=== PATIENT | female | born 1960 | race Caucasian/White ===

== ENCOUNTER 2019-04-22 08:39 | Outpatient (RCR) | payer BC, SELFPAY ==
[2019-04-22 08:51] VITALS: BP_SYST 140
--- NOTE | 2019-04-22 09:54 | PTOPEVAL ---
PHYSICAL THERAPY EVALUATION AND PLAN OF CARE 04-22-2019 Mrs. Sheth has received the PT evaluation today for the diagnosis of lymphedema. The plan of treatment is 2x/week for 5 weeks. Thank you for referring Colleen to [facility]. Please review, sign, date and return this plan of care LURDES. I agree with and certify that the following plan of care is medically necessary. Referring Physician Date Referring Provider: Xin Scott *PT Outpatient Evaluation Start: 04/22/19 08:51 Document 04/22/19 08:51 FAISAL (Rec: 04/22/19 09:54 FAISAL [id number]) Therapy Assessment Status Assessment Status Assessment Status Evaluation Outpatient Past Medical History Neurological History Hx Neurological Disorders No Significant History Cardiovascular History Hx Heart Murmur Yes: tricuspid valve leaks Respiratory History Hx Asthma Yes Hx Other Respiratory Disorders Yes: inactive TB Gastrointestinal History Hx Other Gastrointestinal Disorders Yes: ruiz's esophagus- meds ;constipation Genitourinary History Hx Other Genitourinary Disorders Yes: ureteral stents; deformed kidney Musculoskeletal History Hx Arthritis Yes: pain knees, hips, back, fingers Hx Orthopedic Surgery Yes: L knee arthroscopy,R shoulder manipulation, L shoulder arthroscopy Hx Other Musculoskeletal Disorders Yes: neuropathy in feet, fingers since chemo Hematological History Hx Hematological Disorders No Significant History Endocrine History Hx Endocrine Disorders No Significant History HEENT History Hx HEENT Disorders No Significant History Reproductive History Hx Hysterectomy Yes Other History Hx Other Surgeries Yes: R foot surgery Evaluation Information Problem Diagnosis lymphedema L breast and arm Onset Nov 2018 Subjective Information has continued to have issues Query Text:As Reported By Patient/ since here in November 2018; Family stopped attending in January due to falls, awaiting intermittent compression pump and finding new dr. 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
--- NOTE | 2019-05-21 14:20 | PCPTNOTE ---
PHYSICAL THERAPY DISCHARGE 05-21-2019 Attending Provider: Dr. Xin Scott Patient:Colleen Sheth Date of :1960 Mrs. Sheth has not returned for any further treatments since the PT evaluation on 04/22/2019, therefore she will be discharged from therapy at this time. The goals were not assessed. Thank you for referring Colleen to [facility]. Please review, sign, date and return this discharge summary LURDES. I have been updated about the patient's current status and I agree with discharge from the above service at this time. Referring Physician Date
== END 2019-05-22 14:40 | disposition home or self-care (01) ==
LOC: ANHPT 08:39
DX: I89.0 Lymphedema, not elsewhere classified (principal); C50.912 Malignant neoplasm of unspecified site of left female breast; C77.3 Secondary and unspecified malignant neoplasm of axilla and upper limb lymph nodes
CPT/HCPCS: 97161

== ENCOUNTER 2019-05-05 09:54 | Outpatient (CLI) | payer BC, SELFPAY ==
--- NOTE | 2019-05-05 | ECHO_ITS ---
Patient Info Name: Colleen Sheth Age: 59 years : 1960 Gender: Female Ht: 68 in Wt: 200 lbs BSA: 2.11 m2 HR: 68 bpm BP: 148 / 80 mmHg Heart Rhythm: Sinus Rhythm Technical Quality: Fair Exam Date: 05/05/2019 10:19 AM Exam Location: [facility] Patient Status: Outpatient Admit Date: 05/05/2019 Staff Ordering Physician: Samir Sahu MD Absorber Operator: Alessandra Paula RDCS Attending Provider: Samir Sahu MD Referring Physician: Luis Alberto BENNETT; Exam Type: CA echo doppler color flow Study Info Indications C50.412 - Malignant neoplasm of upper-outer quadrant of left female breast Complete two-dimensional, color flow and Doppler transthoracic echocardiogram is performed. Summary 1. Left ventricular chamber dimension is normal. 2. Left ventricular systolic function is normal, estimated at 60-65%. 3. No significant valvular abnormalities. 4. Compared with September of 2018 there have been no changes. Left Ventricle Left ventricular chamber dimension is normal. Left ventricular systolic function is normal, estimated at 60-65%. The left ventricular diastolic function is grade II diastolic dysfunction. Right Ventricle Right ventricular chamber dimension is normal. Left Atria Left atrial chamber dimension is normal. Right Atria Right atrial chamber dimension is normal. Aortic Valve The aortic valve is trileaflet. Pulmonic Valve The pulmonic valve is normal. Mitral Valve The mitral valve has normal leaflets. Tricuspid Valve The tricuspid valve leaflets are normal. There is mild tricuspid valve regurgitation. Pericardium/Pleural The pericardium appears normal. Aorta The aortic root size at the sinus of Valsalva is normal. Left Ventricular Outflow Tract Name Value Normal LVOT 2D LVOT Diameter 2.0 cm LVOT Doppler LVOT Peak Gradient 5 mmHg LVOT Mean Gradient 3 mmHg LVOT VTI 22 cm LVOT VTI/AV VTI Ratio 0.9 LVOT Stroke Volume 72 ml LVOT CO 4.7 l/min LVOT CI 2.2 l/min/m2 Pulmonic Valve Name Value Normal RVOT Doppler RVOT Peak Gradient 2 mmHg PV Doppler PV Peak Gradient 5 mmHg Mitral Valve Name Value Normal MV Doppler MV Decel [place] 426 cm/s2 MV PHT 58 ms MV Area (PHT)
== END 2019-05-05 09:55 | disposition home or self-care (01) ==
LOC: ANHCARD 09:57
PROVIDERS: Visit Provider Internal Medicine Hematology & Oncology
DX: C50.412 Malignant neoplasm of upper-outer quadrant of left female breast (principal); Z17.0 Estrogen receptor positive status [ER+]; I36.1 Nonrheumatic tricuspid (valve) insufficiency
CPT/HCPCS: 93306

== ENCOUNTER 2020-03-15 13:31 | Outpatient (CLI) | payer BC, SELFPAY ==
--- NOTE | ~2020-03-15 | MM_ITS ---
EXAMINATION: MM diagnostic sukhjinder BI w ruddy HISTORY: Invasive ductal carcinoma of the left breast; status post left partial mastectomy and radiat ion treatment TECHNIQUE: ML, MLO and craniocaudal 3-D tomosynthesis images of both breasts were performed and synth etic 2-D images were generated. CAD analysis was submitted and interpreted. COMPARISON: 09/05/2018bilateral digital mammogram examination BREAST PARENCHYMAL COMPOSITION: The breasts are heterogeneously dense, which may obscure small masses . FINDINGS: The right-sided chemotherapy port is no longer visualized, having been reportedly removed. There is stable increased fibroglandular stromal density, architectural distortion and skin thickenin g, as on 09/05/2018 following reported left partial mastectomy and radiotherapy. No interval suspicious mass or new architectural distortion or retraction of either breast is evident . Occasional benign calcifications. IMPRESSION: 1. Status post left partial mastectomy and radiotherapy; no significant change since 09/05/2018 2. Appropriate follow-up breast imaging as clinically appropriate this patient with history of stage II left breast cancer BI-RADS Category 2: Benign finding(s). Reviewed, dictated and finalized at location A. MACHINE OPERATOR
== END 2020-03-15 13:32 | disposition home or self-care (01) ==
PROVIDERS: Visit Provider Internal Medicine Hematology & Oncology
DX: C50.912 Malignant neoplasm of unspecified site of left female breast (principal)
CPT/HCPCS: 77062; 77066; G0279

== ENCOUNTER 2020-07-29 11:51 | Outpatient (CLI) | payer MEDICARE, BC, SELFPAY ==
--- NOTE | ~2020-07-29 | CT_ITS ---
EXAMINATION: CT brain w con DATE: 07/29/2020 12:31 INDICATION: Memory loss. Dementia. Unsteady gait. TECHNIQUE: Computed tomography (CT) of the head was performed with 100 mL Omnipaque 350 intravenous c ontrast. The mA was adjusted according to patient size. Iterative reconstruction technique was employ ed. The dose-length product was 605.33 mGy-cm. COMPARISON: None FINDINGS: There is no intracranial hemorrhage, acute infarction, or abnormal intracranial mass lesion . The ventricles are normal in size. There is mild mucosal thickening in the ethmoid sinuses. There i s a trace right mastoid effusion. The orbits are normal. IMPRESSION: 1. Normal brain. Reviewed, dictated and finalized at location A. IMPRESSION: 1. Normal brain.
== END 2020-07-29 11:52 | disposition home or self-care (01) ==
PROVIDERS: Visit Provider Internal Medicine Hematology & Oncology
DX: F03.90 Unspecified dementia, unspecified severity, without behavioral disturbance, psychotic disturbance, mood disturbance, and anxiety (principal)
CPT/HCPCS: 36415; 70460; 84443; Q9967

== ENCOUNTER 2021-03-17 11:25 | Outpatient (CLI) | payer MEDICARE, BC, SELFPAY ==
--- NOTE | ~2021-03-17 | MM_ITS ---
EXAMINATION: MM diagnostic sukhjinder BI w ruddy HISTORY: History of left breast cancer and radiation therapy TECHNIQUE: Additional 3-D tomosynthesis images of the breasts were performed and synthetic 2-D images were generated. CAD analysis was submitted and interpreted. COMPARISON: Comparison to multiple prior studies sequentially, with oldest reviewed study dated 04/13. BREAST PARENCHYMAL COMPOSITION: The breasts are heterogenously dense, which may obscure small masses FINDINGS: .There are changes of the left breast consistent with previous lumpectomy and radiation the rapy. No new masses, calcifications or architectural distortion are identified in either breast to marsh ggest malignancy. IMPRESSION: 1. Stable bilateral mammogram without evidence for malignancy. 2. Routine yearly screening mammogram and regular clinical breast examination are recommended. BI-RADS Category 2: Benign finding(s). Reviewed, dictated and finalized at location A. R COATING MACHINE OPERATOR IMPRESSION: 1. Stable bilateral mammogram without evidence for malignancy. 2. Routine yearly screening mammogram and regular clinical breast examination a re recommended. BI-RADS Category 2: Benign finding(s).
== END 2021-03-17 11:26 | disposition home or self-care (01) ==
PROVIDERS: Visit Provider Internal Medicine Hematology & Oncology
DX: C50.412 Malignant neoplasm of upper-outer quadrant of left female breast (principal); Z17.0 Estrogen receptor positive status [ER+]
CPT/HCPCS: 77062; 77066; G0279

== ENCOUNTER 2021-10-13 09:04 | Outpatient (CLI) | payer MEDICARE, BC, SELFPAY ==
--- NOTE | ~2021-10-13 | US_ITS ---
EXAMINATION: US FNA w image guidance DATE: 10/13/2021 11:50 INDICATION: Multinodular goiter TECHNIQUE: [place] ultrasound images were obtained and comparison made to outside institution ultrasound images elizabeth cosby 09/15/2021. A time-out was performed to verify the patient's name, date of , and procedure to be performed. The procedure and its benefits and risks were discussed with the patient. Risks spec ifically discussed included bleeding and infection. The patient understood the risks and agreed to pr oceed. The neck was prepped and draped in the usual sterile manner. 3 mL 1% lidocaine was used for l ocal anesthesia. 6 passes were made with a 25G needle into the lesion. Appropriate needle location was documented with continuous sonographic guidance. A sterile bandage was applied. There were no i mmediate complications. FINDINGS: Telegrapher Agent images identified at the 1 cm wider than tall solid very hypoechoic nodule with internal echoge saroj foci consistent with a TI-RADS 5 nodule meeting criteria for ultrasound-guided biopsy. There is a smaller hypoechoic taller than wide solid nodule at the deep left thyroid measuring 8 mm in maximal diameter, also TI RADS 5 right below size criteria for biopsy at this time but for which annual follo w-up ultrasound would be recommended. Subsequent images demonstrate biopsy needles advanced into the 1.0 cm TI RADS 5 right thyroid nodule. IMPRESSION: 1. Successful ultrasound-guided fine needle aspiration of a 1.0 cm TI RADS 5 right thyroid nodule. 2. 8 mm TI RADS 5 nodule in the inferior left thyroid for which annual ultrasound follow-up would be recommended. Reviewed, dictated and finalized at location A. IMPRESSION: 1. Successful ultrasound-guided fine needle aspiration of a 1.0 cm TI RADS 5 r ight thyroid nodule. 2. 8 mm TI RADS 5 nodule in the inferior left thyroid for which annual ultrasou nd follow-up would be recommended.
== END 2021-10-13 09:05 | disposition home or self-care (01) ==
DX: E04.2 Nontoxic multinodular goiter (principal)
CPT/HCPCS: 10005; 88173; 88305

== ENCOUNTER 2021-10-24 12:28 | Outpatient (CLI) | payer MEDICARE, BC, SELFPAY ==
--- NOTE | ~2021-10-24 | US_ITS ---
EXAMINATION: US venous doppler [facility] DATE: 10/24/2021 14:42 INDICATION: Left lower limb pain. TECHNIQUE: Grayscale ultrasound images without and with compression and Doppler ultrasound images of the bilateral lower extremity veins were obtained. COMPARISON: None. FINDINGS: The visualized portions of right common femoral vein, profunda (deep) femoral vein, femoral vein, pop liteal vein, peroneal veins, posterior tibial veins, and greater saphenous vein outflow are patent. The visualized portions of left common femoral vein, profunda femoral vein, femoral vein, popliteal v ein, peroneal veins, posterior tibial veins, and greater saphenous vein outflow are patent. IMPRESSION: 1. No deep venous thrombosis. Reviewed, dictated and finalized at location A.
== END 2021-10-24 12:29 | disposition home or self-care (01) ==
PROVIDERS: Visit Provider Internal Medicine Cardiovascular Disease
DX: M79.605 Pain in left leg (principal); C50.919 Malignant neoplasm of unspecified site of unspecified female breast
CPT/HCPCS: 93970

== ENCOUNTER 2021-11-10 08:58 | Outpatient (CLI) | payer MEDICARE, BC, SELFPAY ==
--- NOTE | ~2021-11-10 | US_ITS ---
EXAMINATION: US FNA w image guidance DATE: 11/10/2021 10:00 INDICATION: Right thyroid nodule with prior nondiagnostic biopsy. TECHNIQUE: A time-out was performed to verify the patient's name, date of , and procedure to be performed . The procedure and its benefits and risks were discussed with the patient. Risks specifically discus sed included bleeding and infection. The patient understood the risks and agreed to proceed. The neck was prepped and draped in the usual sterile manner. 3 mL 1% lidocaine was used for local anesthesia . 6 passes were made with a 25G needle into the lesion. Appropriate needle location was documented with continuous sonographic guidance. A sterile bandage was applied. There were no immediate compli cations. FINDINGS: Grayscale ultrasound images demonstrate biopsy needles advanced into a nearly anechoic 1.0 x 0.4 x 0. 4 cm likely complex cystic nodule at the inferior right thyroid. There are few internal echogenic foc i, the largest with clearly discernible posterior comet tailing consistent with inspissated colloid a nd suggesting this represents a colloid cyst. No internal vascular flow is identified within the nodu le on color Doppler. IMPRESSION: 1. Successful ultrasound-guided fine needle aspiration of a 1.0 cm right thyroid lesion with imaging findings most consistent with a complex colloid cyst. Reviewed, dictated and finalized at location A. IMPRESSION: 1. Successful ultrasound-guided fine needle aspiration of a 1.0 cm right thyro id lesion with imaging findings most consistent with a complex colloid cyst.
== END 2021-11-10 08:59 | disposition home or self-care (01) ==
DX: E04.2 Nontoxic multinodular goiter (principal)
CPT/HCPCS: 10005; 88173; 88305

== ENCOUNTER 2022-03-20 08:51 | Outpatient (CLI) | payer MEDICARE, BC, SELFPAY ==
--- NOTE | ~2022-03-20 | MM_ITS ---
EXAMINATION: MM screening sukhjinder BI w ruddy HISTORY: Screening mammogram TECHNIQUE: Craniocaudal and mediolateral oblique 3-D tomosynthesis images were obtained and synthetic 2-D images were generated. Bilateral rotated lateral CC views. CAD analysis was submitted and interp reted. COMPARISON: 03/17/2021 bilateral diagnostic mammogram 03/15/2020 bilateral diagnostic mammogram 09/05/2018 right screening and left diagnostic mammogram BREAST PARENCHYMAL COMPOSITION: The breasts are heterogeneously dense, which may obscure small masses . FINDINGS: Right breast: There is no evidence of suspicious mass, calcification, or architectural dist ortion to suggest malignancy in the right breast. Occasional benign calcifications. There has been no suspicious interval change. Left breast: There is stable asymmetric increased density, architectural distortion and skin thickeni ng; history of partial mastectomy and radiotherapy. There is significant new or developing density or new architectural distortion or retraction is noted . Occasional benign calcifications. IMPRESSION: 1. Status post left partial mastectomy and radiotherapy for left breast cancer No mammographic eviden ce of new or recurrent malignancy. 2. Recommend routine screening mammography in one year. BI-RADS Category 2: Benign finding(s). Reviewed, dictated and finalized at location A. NE COWLING INSTALLER IMPRESSION: 1. Status post left partial mastectomy and radiotherapy for left breast cancer No mammographic evidence of new or recurrent malignancy. 2. Recommend routine screening mammography in one year. BI-RADS Category 2: Benign finding(s).
== END 2022-03-20 08:52 | disposition home or self-care (01) ==
LOC: ANHIMG 08:52
PROVIDERS: Visit Provider Internal Medicine Hematology & Oncology
DX: Z12.31 Encounter for screening mammogram for malignant neoplasm of breast (principal)
CPT/HCPCS: 77063; 77067

== ENCOUNTER 2023-03-23 11:43 | Outpatient (CLI) | payer MEDICARE, BC, SELFPAY ==
--- NOTE | ~2023-03-23 | MM_ITS ---
EXAMINATION: MM screening sukhjinder BI w ruddy HISTORY: Screening mammogram, history of left breast cancer TECHNIQUE: Craniocaudal and mediolateral oblique 3-D tomosynthesis images were obtained and synthetic 2-D images were generated. CAD analysis was submitted and interpreted. COMPARISON: 03/20/2022, 03/17/2021, 03/15/2020, 09/05/2018 BREAST PARENCHYMAL COMPOSITION: The breasts are heterogeneously dense, which may obscure small masses . FINDINGS: There are stable lumpectomy changes of the left breast. No suspicious mass, calcification, or architectural distortion are identified in either breast to suggest malignancy. There has been no suspicious interval change. IMPRESSION: 1. No mammographic evidence of malignancy. 2. Recommend routine screening mammography in one year. BI-RADS Category 2: Benign finding(s). Reviewed, dictated and finalized at location A. ET OPERATOR
== END 2023-03-23 11:44 | disposition home or self-care (01) ==
LOC: CHSIMG 11:48
PROVIDERS: Visit Provider Internal Medicine Hematology & Oncology
DX: Z12.31 Encounter for screening mammogram for malignant neoplasm of breast (principal)
CPT/HCPCS: 77063; 77067

== ENCOUNTER 2023-05-21 10:22 | Outpatient (CLI) | payer MEDICARE, BC, SELFPAY ==
--- NOTE | ~2023-05-21 | MR_ITS ---
EXAMINATION: MR shoulder LT wo con DATE: 05/21/2023 10:59 INDICATION: Acute pain of left shoulder. TECHNIQUE: Magnetic resonance imaging (MRI) of the left shoulder was performed without intravenous co ntrast. Sequences included axial PD-weighted FS FSE, coronal oblique PD-weighted FS FSE and T2-weight ed FS FSE, and sagittal oblique T2-weighted FS FSE and T1-weighted FSE. COMPARISON: None. FINDINGS: Coracoacromial arch: The acromion undersurface is flat in morphology (type I). There is severe acromioclavicular joint ost eoarthritis including inferiorly directed osteophytes. There is mild subacromial/subdeltoid bursitis. Rotator cuff: There is a bursal-sided, partial-thickness tear of the junction of supraspinatus and infraspinatus te ndons measuring 3 mm anterior to posterior by 6 mm proximal to distal by 40% tendon thickness. Teres minor tendon is normal. There is mild subscapularis tendinopathy. The rotator cuff muscle bellies are normal. There is edema-like marrow signal intensity in greater tuberosity, consistent with stress re action. Biceps tendon and glenoid labrum: Biceps tendon is in bicipital groove. Intra-articular biceps tendon is normal. The glenoid labrum is normal. Fluid: There is no glenohumeral joint effusion. Bones/cartilage: Glenoid cartilage is normal. Humeral head cartilage is normal. IMPRESSION: 1. Bursal-sided, partial-thickness tear of the junction of supraspinatus and infraspinatus tendons. 2. Severe acromioclavicular joint osteoarthritis. 3. Mild subacromial/subdeltoid bursitis. Reviewed, dictated and finalized at location E. IMPRESSION: 1. Bursal-sided, partial-thickness tear of the junction of supraspinatus and in fraspinatus tendons. 2. Severe acromioclavicular joint osteoarthritis. 3. Mild subacromial/subdeltoid bursitis.
== END 2023-05-21 10:23 ==
PROVIDERS: Visit Provider Registered Nurse
DX: M19.012 Primary osteoarthritis, left shoulder (principal); M75.52 Bursitis of left shoulder
CPT/HCPCS: 73221

== ENCOUNTER 2023-05-21 11:25 | Outpatient (CLI) | payer MEDICARE, BC, SELFPAY ==
[2023-05-21 11:51] LABS: Basophils Absolute Auto 0.1 K/mm3 (0.0-0.1); Basophils Percent Auto 1.2 % (0.2-1.2); Eosinophils Absolute Auto 0.3 K/mm3 (0-0.3); Eosinophils Percent Auto 4.6 % (0-4.4); Hematocrit 38.1 % (37.0-47.0); Hemoglobin 12.6 g/dL (12.0-15.0); Immature Granulocyte Absolute 0.01 K/mm3 (0.00-0.031); Immature Granulocyte Percent A 0.2 % (0-0.5); Lymphocytes Absolute Auto 1.59 K/mm3 (0.9-3.2); Lymphocytes Percent Auto 28.1 % (18.3-44.2); Mean Corpuscular HGB Conc 33.1 g/dl (32-36); Mean Corpuscular Hemoglobin 32.3 pg (26-34); Mean Corpuscular Volume 97.7 fl (80-100); Mean Platelet Volume 9.5 fl (7.4-10.4); Monocytes Absolute Auto 0.4 K/mm3 (0.1-0.6); Monocytes Percent Auto 6.5 % (2.6-8.5); Neutrophils Absolute Auto 3.4 K/mm3 (1.3-6.7); Neutrophils Percent Auto 59.4 % (45.5-73.1); Platelet Count Result 287 k/mm3 (150-375); Red Cell Distribution Width 13.2 % (11.5-14.5); White Blood Count 5.7 K/mm3 (4.5-10.0)
[2023-05-21 19:32] LABS: Alanine Aminotransferase 23 U/L (6-35); Albumin Level 4.4 g/dL (3.5-5.1); Alkaline Phosphatase 86 U/L (38-126); Anion Gap 5 mmol/L (8-16); Aspartate Amino Transferase 25 U/L (14-36); Bilirubin,Total 0.5 mg/dL (0.2-1.3); Blood Urea Nitrogen 16 mg/dL (7-17); Calcium 9.7 mg/dL (8.4-10.2); Carbon Dioxide 28 mmol/L (22-30); Chloride 104 mmol/L (98-107); Estimated Glomerular Filt Rate 50; Glucose 119 mg/dL (65-110); Potassium 4.2 mmol/L (3.4-5.0); Sodium 137 mmol/L (137-145)
[2023-05-26 10:10] LABS: CA 15-3 21 U/mL (<32)
== END 2023-05-21 11:26 | disposition home or self-care (01) ==
PROVIDERS: Visit Provider Internal Medicine Hematology & Oncology
DX: C50.912 Malignant neoplasm of unspecified site of left female breast (principal)
CPT/HCPCS: 36415; 80053; 85025; 86300

== ENCOUNTER 2023-11-23 14:18 | Outpatient (CLI) | payer MEDICARE, BC, SELFPAY ==
[2023-11-23 15:03] LABS: Basophils Absolute Auto 0.1 K/mm3 (0.0-0.1); Basophils Percent Auto 0.9 % (0.2-1.2); Eosinophils Absolute Auto 0.1 K/mm3 (0-0.3); Eosinophils Percent Auto 1.9 % (0-4.4); Hematocrit 36.7 % (37.0-47.0); Hemoglobin 12.6 g/dL (12.0-15.0); Immature Granulocyte Absolute 0.01 K/mm3 (0.00-0.031); Immature Granulocyte Percent A 0.2 % (0-0.5); Lymphocytes Absolute Auto 1.34 K/mm3 (0.9-3.2); Lymphocytes Percent Auto 23.7 % (18.3-44.2); Mean Corpuscular HGB Conc 34.3 g/dl (32-36); Mean Corpuscular Hemoglobin 33.2 pg (26-34); Mean Corpuscular Volume 96.8 fl (80-100); Mean Platelet Volume 10.1 fl (7.4-10.4); Monocytes Absolute Auto 0.4 K/mm3 (0.1-0.6); Monocytes Percent Auto 7.8 % (2.6-8.5); Neutrophils Absolute Auto 3.7 K/mm3 (1.3-6.7); Neutrophils Percent Auto 65.5 % (45.5-73.1); Platelet Count Result 282 k/mm3 (150-375); Red Blood Count 3.79 M/mm3 (4.2-5.4); Red Cell Distribution Width 12.9 % (11.5-14.5); White Blood Count 5.7 K/mm3 (4.5-10.0)
[2023-11-23 15:25] LABS: Alanine Aminotransferase 15 U/L (6-35); Albumin Level 4.4 g/dL (3.5-5.1); Alkaline Phosphatase 70 U/L (38-126); Anion Gap 10 mmol/L (4-12); Aspartate Amino Transferase 23 U/L (14-36); Bilirubin,Total 0.4 mg/dL (0.2-1.3); Blood Urea Nitrogen 15 mg/dL (7-17); Calcium 9.1 mg/dL (8.4-10.2); Carbon Dioxide 26 mmol/L (22-30); Chloride 105 mmol/L (98-107); Estimated Glomerular Filt Rate 46; Glucose 99 mg/dL (65-110); Potassium 3.6 mmol/L (3.4-5.0); Sodium 141 mmol/L (137-145)
[2023-11-28 07:48] LABS: CA 15-3 19 U/mL (<32)
== END 2023-11-23 14:19 | disposition home or self-care (01) ==
LOC: ANHLAB 14:26
PROVIDERS: Visit Provider Internal Medicine Hematology & Oncology
DX: C50.912 Malignant neoplasm of unspecified site of left female breast (principal)
CPT/HCPCS: 36415; 80053; 85025; 86300

== ENCOUNTER 2024-04-18 09:48 | Outpatient (CLI) | payer MEDICARE, BC, SELFPAY ==
--- NOTE | ~2024-04-18 | MM_ITS ---
EXAMINATION: MM screening sukhjinder BI w ruddy HISTORY: Screening TECHNIQUE: Craniocaudal and mediolateral oblique 3-D tomosynthesis images were obtained and synthetic 2-D images were generated. CAD analysis was submitted and interpreted. COMPARISON: Comparison to multiple prior studies sequentially, with oldest reviewed study dated 08/2017. BREAST PARENCHYMAL COMPOSITION: Dense: The breasts are heterogeneously dense, which may obscure small masses FINDINGS: There is a developing asymmetry in the upper outer quadrant of the right breast. There is a developing asymmetry in the lower inner quadrant of the left breast. There are no suspicious calcifi cations. IMPRESSION: 1. Developing bilateral breast asymmetries. 2. Additional mammographic views and possible breast ultrasound are recommended. BI-RADS Category 0: Incomplete: Needs additional imaging evaluation. Reviewed, dictated and finalized at location L. ITAL CLERK IMPRESSION: 1. Developing bilateral breast asymmetries. 2. Additional mammographic views and possible breast ultrasound are recommended . BI-RADS Category 0: Incomplete: Needs additional imaging evaluation.
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
--- OUTSIDE RECORDS SUMMARY | 2024-04-18 10:25 | XMS_ITS ---
Author Organization [facility] [place] Address [address] [place] [address] Phone Care Team Providers Care Rides Attendant Name Role Phone Unavailable Primary Care Provider Unavailabl e Active Problems Patient Care Coordination No te Formatting of this note migh t be different from the original. Primary Care: Sanford Jorge MD Referring Provider: Sanford Jorge MD [address] [place] [phone] Other: Dr. Xin Scott MD Problem Noted Date Diagnosed Date Lymphedema of breast 12/04/2018 Malignant neoplasm of upper- outer quadrant of left breast in female, estrogen receptor positive 12/04/2018 History of external beam radiation therapy 12/04 Posttraumatic hematoma of left breast 12/04/2018 Family history of uterine cancer 05/02/2018 Family history of malignant neoplasm of colon in relative diagnosed when younger than 50 years of age 0305/02/2018 Family history of chronic lymphoid leukemia 08/2018 Family history of kidney cancer 05/02/2018 Genetic testing 05/02/2018 Overview (06/11/2018): NEGATIVE genetic testing. The patient underwent the myriad my risk genetic testing for hereditary cancer syndromes [...] common hereditary cancer syndromes. Metastatic cancer to axillary lymph nodes 2018 Invasive ductal carcinoma of breast, stage 2, le ft 02/15/2018 Inactive TB Current Treatment and Therapy Plans No current plan information found. Past Treatment and Therapy Plans ONCOLOGY THERAPY PLAN Plan Name Start Date Discontinue Date Treatment Medications Discontinue Reason Plan Provider BLANK SUPPORTIVE CARE THERAPY PLAN 04/05/2018 01/12/2020 No medications scheduled. Therapy Complete Yesy Linda NP ONCOLOGY TREATMENT Plan Name Start Date Discontinue Date Treatment Medications Discontinue Reason Plan Provider Cycles OP ONC BREAST_TCH + PERTUZUMAB_ EVERY 21 DAYS X 6 FOLLOWED BY TRASTUZUMAB _EVERY 21 DAYS TO COMPLETE 1 YEAR 03/29/2018 01/13/2020 CARBOplatin (PARAPLATIN) IVPBDOCEtaxel (TAXOTERE) IVPBpertuzumab (PERJETA) IVPBtrastuzumab (HERCEPTIN) IVPB Therapy Complete Samir Darby MD 3 of 19 cycles started Lifetime Dose Tracking * Chemical Lifetime Dose Automatic Entry Manual Entr y trastuzumab 13.792 mg/kg (1,182 mg) 13.792 mg/kg (1,1 82 mg) 0 mg/kg (0 mg) Effective Dose 25.4 mSv 25.4 mSv 0 mSv Total DLP 1,878 DLP 1,878 DLP 0 DLP CTDIvol Max 30.1 mGy 30.1 mGy 0 mGy CTDIvol Min 29.1 mGy 29.1 mGy 0 mGy Treatment Summaries Invasive ductal carcinoma of breast, stage 2, left (CMS/HCC)* Breast Cancer Survivorship Care Plan Provided by [facility] on 01/21/19 General Information Patient Name: Colleen Sheth Patient : 1960 Care Team Medical Oncologist: Samir Darby Syed M, MD Surgeon: Xin Scott [phone] Primary Care Physician: Dr. Sanford Jorge Nurse Navigator: Sydney Harmon RN Advanced Practitioner: ROSSY Webber NP Diagnosis/Work up On 01/02/2018 a diagnostic mammogram was performed and showed a new area of asymmetry in the left breast. Ultrasound showed a 10 mm mass that was worrisome for cancer On 01/11/2018 an ultrasound-guided core biopsy was performed of the new left breast mass and pathology showed invasive ductal carcinoma with the following features- intermediate grade, estrogen positive, progesterone positive, and HER 2 positive On a left lumpectomy that showed an intermediate grade invasive ductal carcinoma that measured 2.8 x 2.0 x 1.8 cm, high grade ductal carcinoma in situ noted, margins were positive, left sentinel lymph node biopsy showed cancer in 1 of 2 lymph nodes. On 02/25/2018 a left re-excision was performed and showed no evidence of residual in situ or invasive carcinoma On 03/25/[address] scan did not show any evidence of metastatic cancer Staging information Cancer type/location/histology subtype: Invasive ductal carcinoma of the left breast TNM: T2 N1 M0 Stage: [] I [x] II [] III [] IV Estrogen Receptor: Positive Progesterone Receptor: Positive [id number]: Positive Treatment Summary Surgery Left lumpectomy and sentinel lymph node biopsy Left re-excision Date: 02/08/2018 Date: 02/25/2018 Chemotherapy Taxotere + Carboplatin + Herceptin + Perjeta every 3 weeks X 3 cycles Maintenance Herceptin for total of 12 months Dates: 03/29/18- 05-22-18 Dates: June 2018- March 2019 Radiation Type: External Beam Site: Left breast Start Date: July 01, 2018 Endocrine Arimidex Date: July 2018 Familial Cancer Risk Assessment Genetic Counseling yes Dates: 05-02-18 Genetic Testing Results: Negative Date: 06-11-18 Persistent symptoms or side effects at completion of treatment: no Types: Potential late effects of treatment(s): Surgical Treatment: These are some side effects that may be a result of your breast surgery. You may have one or more of these problems or you may not experience any of these problems. Please contact your doctor if you have: Seroma- A collection of fluid in the area of surgery that does not go away. Pain in the area of surgery that does not go away after the site is healed. This may last for a long period of time. Difficulty in moving your shoulder and/or arm on the side of your surgery. Radiation Treatment: Late side effects generally occur 6 or more months after the completion of radiation therapy. The extent and severity of these side effects vary depending on patient factors and radiation treatment design. The majority of radiation side effects occur within the radiation treatment field. Skin changes Risk of lymphedema Risk of lung tissue changes Chemotherapy Treatment: Taxotere + Carboplatin + Perjeta + Herceptin Fatigue Memory/Concentration issues Peripheral neuropathy Cardiomyopathy (Herceptin)- baseline echo done on 03/25/18 showed normal ejection fraction of 60-65%and most recent echo done on 10/22/18 showed stable ejection fraction of 55-60% Endocrine Therapy: The effects are going to depend on the drug received: Anastrazole (Arimidex) Osteoporosis Joint pain/stiffness Hot flashes Vaginal dryness, lack of libido Cancer Survivors may experience issues with the area listed below. If you have any concerns in these or other areas, please speak with your doctors or nurses to find out how you can get help with them. Potential Areas of Concern Potential Areas of Concern Emotional and Mental Health Physical Functioning Memory or Concentration Loss Fatigue Spiritual Issues Weight Changes School/Work Financial Advice or Assistance Sexual Functioning Resources Provided to Patient [facility]errals Provided: [facility] Follow-up and Survivorship Care Follow Up Care Recommendation Coordinating Provider Ongoing Therapy Therapy: Aromatase Inhibitors (Anastrozole, Letrozole, Exemestane). Possible Side Effects: Hot Flashes, Joint/Muscle Aches, Vaginal Dryness, Bone Loss, and Hair Thinning Planned Duration: 5-10 years Medical Oncologist Medical Oncology history and physical (H&P) examination Visit your doctor every 3 to 4 months for the first 3 years after the first treatment, every 6 months for years 4 and 5, and every year thereafter. Medical Oncologist Surgeon 1-2 times per year as clinically indicated for 5 years; every year thereafter. Surgeon Radiation Oncology 4-6 weeks after treatment, then every 3-6 months for the first 3 years and then every 6-12 months for year 4 and 5. Radiation Oncologist Post-treatment mammography Schedule a mammogram 1 year after your first mammogram that led to diagnosis. Done on 09/05/2018. Obtain a mammogram every 12 months thereafter Medical Oncologist, PCP, and Surgeon Breast self-examination Perform a breast self-examination every month. This procedure is not a substitute for a mammogram. Medical Oncologist, Surgeon, and OB/Ultrasound Tech Pelvic examination Continue to visit a wheel fitter regularly OB/Ultrasound Tech Bone Density Baseline prior to Anastrozole, Letrozole, and Exemestane on all postmenopausal women and repeated every 1 to 2 years as directed by physician. Medical Oncologist/Primary Care Provider Non cancer related preventive care Continue your routine visits to your primary care physician for preventative care. Bone health DEXA every 2 years Calcium with vitamin D 1000 units daily Weight bearing exercise Colon Cancer Screening Screening colonoscopy starting at age 45 or as discussed with PCP Stool guaiac tests Eat fruits and vegetables Heart Health Weight management Cholesterol management Blood sugar control Blood pressure control Cervical Cancer Screening Pap test as discussed with PCP Call your doctor if you have any of these signs and symptoms: abdominal bloating, appetite changes,bone pain, dehydration, diarrhea, dizziness, fatigue, shortness of breath, vaginal bleeding, weightgain, and weight loss *Any new, unusual and/or persistent symptoms should be brought to the attention of your provider. PLAN 1- Continue maintenance Herceptin 2- Baseline bone density 3- due for repeat echocardiogram in February 2019 RESOURCES [facility] organizations Cancer Support Community of [facility] cancer community office which include support groups (including a survivorship group), mentoring, exercise and yoga classes among other ways to get involved and connect with fellow survivors as well as resources for families and caregivers. Website: http://www.cancersupportstl.org/ [facility] at the [facility] A physical activity and wellness program designed for cancer survivors to help achieve well-being. Contact your local [facility] to get started. The program is free to join and lasts for 12 weeks. Visit the website to see a list of participating locations. Website: https://www.[facility].org/program/livestrong Cancer Information Center at [facility]???s Omer Rehman [facility] Call or drop by to speak with a social insurance analyst or nurse navigator for questions about financial/food/housing assistance, counseling services, resources for wigs, checkman referral and general questions about diagnosis, treatment and survivorship. There is also a survivorship monthly support group that meets at [place]. Call for more information. Website for special events/classes: https://www.[facility]/practice/reva-cancer-center/cance u-nxrtbrwa-vis-special-events/ National nonprofit organizations [employer]/National Cancer Information Center [facility] provides cancer information and support to patients, families, and caregivers. It also supportsresearch, community, education, and advocacy and public policy issues Phone: 0-376-CVR-0114 ( ) Website: www.cancer.org CancerCare Provides free, professional support services to anyone affected by cancer. CancerCare programs include counseling, education, financial assistance and practical help by trained oncology social workers and are free of charge. Phone: 9-740-848-HOPE ( ) Website: www.cancercare.org Cancer Hope Network Cancer Hope Network matches patients and families with trained volunteers who have recovered from asimilar cancer experience. Phone: 0-633-SIKWLSO ( ) Website: www.cancerhopenetwork.org Cancer Support Community Cancer support community is a national organization that provides support groups, stress reduction and cancer education workshops, nutrition guidance, exercise sessions and social events. Phone: 8-516-473-[facility] ( ) Website: www.cancersupportcommunity.org National Coalition for Cancer Survivorship NCCS provides information and resources on cancer support, advocacy, and tmndrio-be-nwrq issues to cancer survivors and loved ones. Phone: 8-501-BJNR-YES ( ) Website: www.canceradvocacy.org Patient Advocate Foundation [facility] provides education, legal counseling, and referrals to cancer patients and survivors. It specializes in matters related to managed care, insurance, financial issues, job discrimination and debt crisis. Phone: Website: www.patientadvocate.org Important caution: this is a summary document whose purpose is to review the highlights of the cancer treatment for this patient. This does not replace information available in the medical record, a complete medical history provided by the patient, examination and diagnostic information, or educational materials that describe strategies for coping with cancer and cancer therapies in detail. Both medical science and an individual???s health care needs change, and therefore this document is current only as of the date of preparation. This summary document does not prescribe or recommend any particular medical treatment or care for cancer or any other disease and does not substitute for the independent medical judgment of the treating professional. Resolved Problems Problem Noted Date Diagnosed Date Resolved Date Invasive ductal carcinoma of left breast, stage 1 01/16/2018 02/15/2018 Breast pain, left 01/16/2018 03/08/2018 Abnormal mammogram of left breast 01/03/2018 03/08/2018
--- OUTSIDE RECORDS SUMMARY | 2024-04-18 10:25 | XMS_ITS | Clinical Summary ---
Author Organization [facility] [place] Address [address] [place] [address] Phone Care Team Providers Care Wood Calker Name Role Phone Unavailable Primary Care Provider Unavailabl e Allergies Active Allergy Reactions Criticality Noted Date Comments Amoxicillin Rash Low 04/12/2011 Yeast infection specifically Iodine Shortness of Breath/Wheezing,Nausea and Vomiting High 08/06/2015 Lisinopril Cough Medium 05/18/2011 Medications naproxen sodium (ALEVE) 220 mg Capsule Take 220 mg by mouth every 12 hours as needed for Pain, Moderate. Active lansoprazole (PREVACID) 30 mg Capsule, Delayed Release(E.C.) Take 30 mg by mouth daily . 8 Active hydroCHLOROthiaz khushbu 25 mg tabletIndication s:ON HOLD Take 25 mg by mouth daily . 8 Active valACYclovir (VALTREX) 500 mg tablet TAKE 1 TABLET (500 MG) BY ORAL ROUTE 2 TIMES PER DAY FOR 3 DAYS as needed 4 8 Active fluticasone (FLONASE) 50 mcg/spray Ada, Suspension by See Admin Instructions route 1 time daily as needed . 8 Active ergocalciferol, vitamin D2, (VITAMIN D ORAL) Take 5,000 mg by mouth daily . Active ipratropium-albu terol (DUONEB) 0.5 mg-3 mg(2.5 mg base)/3 mL Solution for Nebulization Take 3 mL by inhalation every 4 hours as needed for Shortness of Breath. Active albuterol HFA 90 mcg inhaler Take 2 Puffs by inhalation every 6 hours as needed for Shortness of Breath. Active Chlorpheniramine -Codeine (Z-Tuss AC) 2-9 mg/5 mL Liquid Active HYDROcodone-acet aminophen (NORCO) 5-325 mg tablet Active multivitamin (DAILY-KEN) tablet Active promethazine (PHENERGAN) 25 mg tablet Active fluticasone furoate (Arnuity Ellipta) 50 mcg/actuation Disk with Device Act paola budesonide (UCERIS) 9 mg Extended Release 24 hour tablet Activ e ergocalciferol, vitamin D2, 2,500 unit Capsule Active naloxone (NARCAN) 4 mg/spray Ada, Non-Aerosol Administer 1 spray (4 mg) in one nostril one time. May repeat in alternating nostrils every 2-3 min until responsive or EMS arrives. 2 Each 3 0 Active cyanocobalamin, vitamin B-12, 2,000 mcg Tablet Take by mouth. Active Docusate Sodium 100 mg Tablet Take 1 Tablet by mouth 1 time daily as needed. 7 Active zinc oxide (DESITIN 13%) 13 % cream Apply to affected area 1 time daily as needed. 0 Active gabapentin (NEURONTIN) 400 mg capsuleIndicatio ns:Malignant neoplasm of upper-outer quadrant of left breast in female, estrogen receptor positive (CMS/HCC),Neurop athy,Metastatic cancer to axillary lymph nodes (CMS/HCC) Take 1 Capsule (400 mg) by mouth 3 times daily. 270 Capsule 3 0 Active magnesium oxide 500 mg Capsule Take by mouth 1 time daily as needed. Active ondansetron (Zofran ODT) 4 mg Tablet, Rapid Dissolve Place 1 Tablet (4 mg) under tongue every 8 hours as needed for Nausea/Emesis. Dissolve tablet on top of tongue, then swallow with saliva. 30 Tablet 3 1 Active cyclobenzaprine (FLEXERIL) 5 mg Tablet Take 5 mg by mouth. 1 Active rosuvastatin (CRESTOR) 10 mg tablet Take 10 mg by mouth. 1 Active hydrocortisone (HYTONE) 2.5 % Ointment Apply to affected area 2 times daily. 20 Gram 1 1 Active fluticasone propion-salmeter oL (Advair Diskus) 250-50 mcg/dose disk inhaler INHALE 1 PUFF INTO THE LUNGS TWICE A DAY 2 Active VITAMIN E ORAL Take by mouth. Active VIT B COMP NO.1-GYUHN-O-BIO TIN ORAL Take by mouth. Activ e potassium chloride (KLOR-CON) 10 mEq Extended Release tabletIndication s:Malignant neoplasm of upper-outer quadrant of left breast in female, estrogen receptor positive (CMS/HCC) TAKE 2 TABLETS DAILY WITH BREAKFAST 180 Tablet 3 2 Active zolpidem (Ambien) 10 mg tabletIndication s:Insomnia, unspecified type Take 1 Tablet (10 mg) by mouth nightly as needed for Insomnia. 30 Tablet 1 3 Active anastrozole (ARIMIDEX) 1 mg tabletIndication s:Malignant neoplasm of upper-outer quadrant of left breast in female, estrogen receptor positive (CMS/HCC) Take 1 Tablet (1 mg) by mouth daily. 90 Tablet 3 3 Active venlafaxine (EFFEXOR XR) 37.5 mg Extended Release 24 hour capsuleIndicatio ns:Malignant neoplasm of upper-outer quadrant of left breast in female, estrogen receptor positive (CMS/HCC) TAKE 2 CAPSULES IN THE MORNING AND 1 IN THE EVENING 270 Capsule 4 4 Active losartan (COZAAR) 25 mg tablet Take 25 mg by mouth daily. 4 Active meloxicam (MOBIC) 7.5 mg tablet Take 7.5 mg by mouth daily. 4 Active Phentermine 8 mg Tablet Take 8 mg by mouth daily. 4 Active topiramate (TOPAMAX) 25 mg tablet Take 25 mg by mouth 2 times daily. 4 Active LORazepam (ATIVAN) 1 mg tabletIndication s:Invasive ductal carcinoma of left breast, stage 2 (CMS/HCC),Malign ant neoplasm of upper-outer quadrant of left breast in female, estrogen receptor positive (CMS/HCC) TAKE 1 TABLET BY MOUTH EVERY 8 HOURS NEEDED FOR ANXIETY/NAUSEA/V OMITING 90 Tablet 4 Active Active Problems Patient Care Coordination No te Formatting of this note migh t be different from the original. Primary Care: Sanford Jorge MD Referring Provider: Sanford Jorge MD [address] [place] [address] [place] [address] Other: Dr. Xin Scott MD Problem Noted [...] NEGATIVE genetic testing. The patient underwent the [employer] my risk genetic testing for hereditary cancer [...] stage 2, le ft 02/15/2018 Inactive TB Resolved Problems Problem Noted Date Diagnosed Date Resolved Date Invasive ductal carcinoma of left breast, stage 1 01/16/2018 02/15/2018 Breast pain, left 01/16/2018 03/08/2018 Abnormal mammogram of left breast 01/03/2018 03/08/2018 Encounters Date Type Department Care Team Description 04/15/2024 External Device Data [facility] ABSTRACTION Provider, Abstract 03/20/2024 External Device Data [facility] ABSTRACTION Provider, Abstract 03/18/2024 External Device Data [facility] ABSTRACTION Provider, Abstract 03/11/2024 External Device Data [facility] ABSTRACTION Provider, Abstract 01/29/2024 External Device Data [facility] ABSTRACTION Provider, Abstract from Last 3 Months Immunizations Immunization Administration Dates Next Due Influenza Seasonal Unspecified Formulation IM Family History Medical History Relation Name Comments Healthy Brother 1 Healthy Brother 2 Healthy Daughter 1 Healthy Daughter 2 Healthy Daughter 3 Cancer Father Kidney Kidney Cancer Father Cancer Maternal Aunt 1 Uterine canc er Heart Disease Maternal Aunt 1 Diabetes Maternal Aunt 2 Heart Disease Maternal Aunt 2 Healthy Maternal Aunt 3 Cancer Maternal Cousin Uterine canc er Cancer Maternal Grandmother CLL in her 50s Colon Cancer Maternal Uncle 1 Heart Disease Maternal Uncle 2 Heart Disease Maternal Uncle 3 Heart Disease Maternal Uncle 4 Cancer Mother Uterine Diabetes Mother Heart Disease Paternal Grandfather Heart Disease Paternal Grandmother Diabetes Paternal Uncle 1 Diabetes Paternal Uncle 2 Healthy Sister Breast Cancer Neg Hx Ovarian Cancer Neg Hx Relation Name Status Comments Brother 1 Alive Brother 2 Alive Daughter 1 Alive Daughter 2 Alive Daughter 3 Alive Father Alive Maternal Aunt 1 Maternal Aunt 2 Maternal Aunt 3 Alive Maternal Aunt 4 Maternal Cousin Maternal Grandfather Maternal Grandmother Maternal Uncle 1 Maternal Uncle 2 Maternal Uncle 3 Maternal Uncle 4 Mother Paternal Grandfather Paternal Grandmother Paternal Uncle 1 Paternal Uncle 2 Sister Alive Social History Tobacco Use Types Packs/Day Years Used Date Smoking Tobacco: Never Smokeless Tobacco: Never Tobacco Cessation:Counseling Given: Not Answered Alcohol Use Standard Drinks/Week Comments No 0 (1 standard drink = 0.6 oz pur e alcohol) Comments No Sex and Gender Information Value Date Recorded Sex Assigned at Not on file Legal Sex 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 Gender Identity Not on file Sexual Orientation Not on file Last Filed Vital Signs Vital Sign Reading Time Taken Comments Blood Pressure 148/85 11/30/2023 9:35 AM CDT Pulse 75 11/30/2023 9:35 AM CDT Temperature 36.6 C (97.8 F) 11/30/2023 9:35 AM CDT Respiratory Rate 16 11/30/2023 9:35 AM CDT Oxygen Saturation 98% 11/30/2023 9:35 AM CDT Inhaled Oxygen Concentration - - Weight 84.4 kg (186 lb) 11/30/2023 9:35 AM CDT Height 172.7 cm (5' 8 ) 06/09/2021 1:18 PM CDT Body Mass Index 28.28 06/09/2021 1:18 PM CDT Plan of Treatment Upcoming Encounters Date Type Department Care Team (Late st Contact Info) Description 06/02/2024 10:00 AM CDT Office Visit [facility] [address] [place] [phone] Samir Sahu MD [address] [facility] [address] [place] [phone] Health Maintenance Due Date Last Done Comments Pre-Diabetes and Diabetes Screening 1960 ZOSTER VACCINE (1 of 2) 1980 CERVICAL CANCER SCREENING 1991 FIT-DNA Q 3 years 2006 Flex Sig/CT Colonography Q 5 years 2006 FIT/FOBT Q 1 year 04/02/2019 04/02/2018 INFLUENZA VACCINE (#1) 2023 12/16/2020, 2017 Preventative Visit- Commercial 02/27/2024 BREAST CANCER SCREENING 03/23/2024 03/23/19 24, 03/15/2020, 09/25/2019, Additional history exists COLORECTAL SCREENING 06/29/2031 06/28/2021, 07/27/19 12 Colorectal Cancer Screening 06/29/2031 DTAP/TDAP/TD VACCINES (4 - T d or Tdap) 05/03/2033 05/04/2023, 09/21/2014, 08/24/2006, Additional history exists RSV VACCINE (60+ or ) (1 - 1-dose 75+ series) 2036 Medical Devices Implanted Type Area Teller Head Device Identifier Shelf Expiration Date Model / Serial / Lot Hemostatic Surgicel 2x14in 1950 - [id number] Implanted:Qty : 1 on 02/08/2018 by Xin Scott MD at [facility] Hemostatic Left: Axilla [employer] [id number] 10/26/20211950 / / [id number] Hemostatic Surgicel 2x14in 1949 - [id number] Implanted:Qty : 1 on 02/25/2018 by Xin Scott MD at [facility] Hemostatic Left: Breast [employer] 06/25/20221950 / / [id number] Explanted Type Area Teller Head Device Identifier Shelf Expiration Date Model / Serial / Lot Port Pwrprt Clr Du 8fr Mri [id number] - [id number] Implanted:Qty : 1 on 03/27/2018 by Xin Scott MD at [facility] Explanted:Qty : 1 on 02/09/2020 by Xin Scott MD at [facility] Port Right: Chest CR [employer] [id number] 05/27/2019 [id number] / / [id number] Procedures Procedure Name Priority Date/Time Associated Diagnosis Comments MAMMO SCREENING BILAT Routine 03/23/2023 10:32 AM TECHNICAL PHOTOGRAPHER OCCULT BLOOD IMMUNOASSAY, COLORECTAL SCREEN Routine 04/02/2018 from Last 3 Months or Most Recently Relevant to Health Maintenance Results * MAMMO SCREENING BILAT (03/23/2023 10:32 AM TECHNICAL PHOTOGRAPHER) Anatomical Region Laterality Modality Breast Bilateral Other us Samir Sahu MD MAMMO ORDERABLES Final Result * OCCULT BLOOD IMMUNOASSAY, COLORECTAL SCREEN (04/02/2018) Stool STOOL SPECIMEN / Unknown us Abstract Provider BODY FLUIDS AND STOOLS Final R [facility] from Last 3 Months or Most Recently Relevant to Health Maintenance Insurance BLUE ACCESS CHOICE MEDICARE PART A AND B RX [employer] BLUE ACCESS CHOICE MEDICARE PART A AND B Advance Directives For more information, please contact: [phone] * Full Code (Latest Code Status on File) Date Activated Date Inactivated Comments 03/27/2018 6:52 AM 03/27/2018 11:34 AM * Full Code Date Activated Date Inactivated Comments 02/08/2018 2:30 PM 02/08/2018 8:51 PM
--- OUTSIDE RECORDS SUMMARY | 2024-04-18 10:25 | XMS_ITS | Referral Summary ---
Author Organization [facility] [address] Address [address] [place] [address] Care Team Providers Care Retail Sales Associate Bilingual Name Role Phone Sanford Jorge MD Primary Care Provider [phone] Encounters Date Type Department Care Team Description 01/29/2024 11:00 AM LUMP MACHINE OPERATOR Office Visit [facility] Cardiology at [address] [place] [address] Braden Jaimes MD Aortic atherosclerosis (HCC) (Primary Dx); Essential hypertension; Mixed hyperlipidemia; QUEENIE (obstructive sleep apnea); Dizziness; Statin myopathy; Nonrheumatic tricuspid valve regurgitation from Last 3 Months Allergies Active Allergy Reactions Criticality Noted Date Comments Amoxicillin Rash Medium 04/12/2011 Yeast infection specifically Yeast infection specifically Yeast infection specifically Yeast infection specifically Hydrocodone-Acetaminop hen Nausea & Vomiting,Nausea only Low 04/10/2014 Iodine Nausea & Vomiting,Nausea And Vomiting,Other (See comments),Rash,Short ness of breath,Vomiting High 08/06/2015 Hot, break-out, faint Hot, break-out, faint Lisinopril Cough Medium 05/18/2011 Cvcnkew-Xbv-Qgw Reductase Inhibitors Muscle pain Medium 10/10/2021 Medications fluticasone propion-salmeteroL (ADVAIR DISKUS) 250-50 mcg/dose diskus inhaler INHALE 1 PUFF INTO THE LUNGS TWICE A DAY 2 Active vitamin E acetate (VITAMIN E ORAL) Take by mouth Active VIT B COMP NO.9-[id number]-I-BIOTI N ORAL Take by mouth Active rosuvastatin (CRESTOR) 10 mg tablet Take 10 mg by mouth every other day 2 Active hydrocortisone 2.5 % ointment 1 Active venlafaxine XR (EFFEXOR-XR) 37.5 mg 24 hr capsule Take 2 capsules (75 mg total) by mouth daily 1 Active potassium chloride ER 10 mEq CR tablet 2 Active anastrozole (ARIMIDEX) 1 mg tablet 2 Active cyclobenzaprine (FLEXERIL) 5 mg tablet Take 1 tablet (5 mg total) by mouth 3 (three) times a day as needed 1 Active predniSONE (DELTASONE) 50 mg tablet Take 50 mg by mouth daily 1 Active magnesium oxide 500 mg capsule Take by mouth daily Active ondansetron ODT (ZOFRAN-ODT) [address] 1 tablet (4 mg total) under the tongue 1 Active LORazepam (ATIVAN) 1 mg tablet Take 1 tablet (1 mg total) by mouth every 8 (eight) hours as needed 9 Active gabapentin (NEURONTIN) 100 mg capsule Take 4 capsules (400 mg total) by mouth 3 (three) times a day 0 Active cyanocobalamin (Vitamin B-12) 2,000 mcg tablet Take by mouth Active docusate sodium (DOK) 100 mg tablet Take 1 tablet (100 mg total) by mouth as needed 7 Active zinc oxide 13 % cream Apply topically as needed 0 Active naloxone (NARCAN) 4 mg/actuation spray,non-aerosol Administer 1 spray into affected nostril(s) Call 911. Administer a single spray in one nostril. Repeat every 3 minutes as needed if no or minimal response. Active ergocalciferol (DRISDOL) 8,000 unit/mL drops Take 5,000 mg by mouth daily Active chlorpheniramine-c odeine 2-9 mg/5 mL liquid Active HYDROcodone-acetam inophen (NORCO) 5-325 mg per tablet Active multivitamin tablet Active promethazine (PHENERGAN) 25 mg tablet Take 25 mg by mouth every 6 (six) hours as needed Active fluticasone furoate 50 mcg/actuation blister with device Active budesonide DR/ER (UCERIS) 9 mg tablet, delayed & ext.releaseIndicat ions:Ulcerative Colitis 1 tablet (9 mg total) daily Active albuterol HFA (PROVENTIL HFA,VENTOLIN HFA,PROAIR HFA) 90 mcg/actuation inhaler Inhale 2 puffs every 4 (four) hours as needed 1 Active ipratropium-albute roL (DUO-NEB) 0.5-2.5 mg/3 mL nebulizer solution USE 1 VIAL BY NEBULIZER EVERY 6 (SIX) HOURS NEEDED. 9 Active naproxen sodium 220 mg capsule Take 220 mg by mouth Active fluticasone propionate (FLONASE) 50 mcg/actuation nasal spray by other route daily as needed 8 Active lansoprazole (PREVACID) 30 mg capsule Take 1 capsule (30 mg total) by mouth daily 8 Active hydroCHLOROthiazid e (HYDRODIURIL) 25 mg tablet 2 Active valACYclovir (VALTREX) 500 mg tablet Take 1 tablet (500 mg total) by mouth 2 (two) times a day Active cholecalciferol (Vitamin D3) 400 unit capsule Active aspirin (Adult Low Dose Aspirin) 81 mg enteric coated tablet Take 1 tablet (81 mg total) by mouth daily 3 Active losartan (COZAAR) 25 mg tablet Take 1 tablet (25 mg total) by mouth daily 4 Active ezetimibe (ZETIA) 10 mg tablet Take 1 tablet (10 mg total) by mouth daily 90 tablet 3 4 Active Active Problems Problem Noted Date Diagnosed Date Statin intolerance 01/23/2023 Tricuspid valve insufficiency 10/10/2021 Essential hypertension 10/10/2021 Mixed hyperlipidemia 10/10/2021 Other chest pain 10/10/2021 Palpitations 10/10/2021 Vasovagal syncope 10/10/2021 Dizziness 10/10/2021 Malignant neoplasm of female breast 10/10/2021 Pain of left lower extremity 10/10/2021 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 Aortic atherosclerosis 10/10/2021 Social History Tobacco Use Types Packs/Day Years Used Date Smoking Tobacco: Never Smokeless Tobacco: Never Tobacco Cessation:Counseling Given: Not Answered Comments Unknown Sex and Gender Information Value Date Recorded Sex Assigned at Not on file Legal Sex Female 8:53 PM LUMP MACHINE OPERATOR Gender Identity Not on file Sexual Orientation Not on file Last Filed Vital Signs Vital Sign Reading Time Taken Comments Blood Pressure 120/80 01/29/2024 12:25 PM LUMP MACHINE OPERATOR Pulse 80 01/29/2024 11:11 AM LUMP MACHINE OPERATOR Temperature - - Respiratory Rate - - Oxygen Saturation 96% 01/29/2024 11:11 AM LUMP MACHINE OPERATOR Inhaled Oxygen Concentration - - Weight 84.4 kg (186 lb) 01/29/2024 11:11 AM LUMP MACHINE OPERATOR Height 172.7 cm (5' 8 ) 01/29/2024 11:11 AM LUMP MACHINE OPERATOR Body Mass Index 28.28 01/29/2024 11:11 AM LUMP MACHINE OPERATOR Plan of Treatment Not on file Procedures Procedure Name Priority Date/Time Associated Diagnosis Comments ELECTROCARDIOGRAM REPORT Routine 024 9:11 AM LUMP MACHINE OPERATOR Nonrheumatic tricuspid valve regurgitation from Last 3 Months Results * Electrocardiogram Report (01/29/2024 9:11 AM LUMP MACHINE OPERATOR) us Braden Jaimes MD ECG ORDERABLES Final Res ult from Last 3 Months Insurance [facility] MEDICARE [facility] Address: [address] [place] [address] MEDICARE Care Teams Retail Sales Associate Bilingual Relationship Specialty Start Date End Date Sanford Jorge MD [address] [place] [address] [place] [address] PCP - General Family Practice 10/06/21
--- OUTSIDE RECORDS SUMMARY | 2024-04-18 10:25 | XMS_ITS | Encounter Summary ---
Author Organization [facility] Address [address] [place] [address] Care Team Providers Care Recreation Activities Coordinator Name Role Phone Sanford Jorge MD Primary Care Provider [phone] Encounter Details Date Type Department Care Team (Late st Contact Info) Description 03/19/2018 Chart Note [facility] Radiation Therapy [address] [place] [address] [place] [address] [place] [address] Social History Tobacco Use Types Packs/Day Years Used Date Smoking Tobacco: Never Smokeless Tobacco: Never Alcohol Use Standard Drinks/Week Comments No 0 (1 standard drink = 0.6 oz pur e alcohol) Comments No Sex and Gender Information Value Date Recorded Sex Assigned at Not on file Legal Sex Female 3:02 PM MID LEVEL PRACTITIONER Gender Identity Not on file Sexual Orientation Not on file documented as of this encounter Plan of Treatment Upcoming Encounters Date Type Department Care Team (Late st Contact Info) Description 06/02/2024 10:00 AM CDT Office Visit [facility] Oncology and Hematology - [address] [facility] [address] [place] [address] Samir Sahu MD [address] [facility] [address] [place] [address] documented as of this encounter Visit Diagnoses Not on filedocumented in this encounter Care Teams Recreation Activities Coordinator Relationship Specialty Start Date End Date Sanford Jorge MD [address] [place] [address] [place] [address] PCP - General Family Practice 01/11/18 11/29/23 documented as of this encounter
--- OUTSIDE RECORDS SUMMARY | 2024-04-18 10:25 | XMS_ITS | Clinical Summary ---
Author Organization [facility] [address] Address [address] [place] [address] Care Team Providers Care Wrecking Car Driver Name Role Phone Sanford Jorge MD Primary Care Provider [phone] Allergies Active Allergy Reactions Criticality Noted Date Comments Amoxicillin Rash Medium 04/12/2011 Yeast infection specifically Yeast infection specifically Yeast infection specifically Yeast infection specifically Hydrocodone-Acetaminop hen Nausea & Vomiting,Nausea only Low 04/10/2014 Iodine Nausea & Vomiting,Nausea And Vomiting,Other (See comments),Rash,Short ness of breath,Vomiting High 08/06/2015 Hot, break-out, faint Hot, break-out, faint Lisinopril Cough Medium 05/18/2011 Htndhwc-Gur-Vcu Reductase Inhibitors Muscle pain Medium 10/10/2021 Medications fluticasone propion-salmeteroL (ADVAIR DISKUS) 250-50 mcg/dose diskus inhaler INHALE 1 PUFF INTO THE LUNGS TWICE A DAY 2 Active vitamin E acetate (VITAMIN E ORAL) Take by mouth Active VIT B COMP NO.9-[id number]-V-BIOTI N ORAL Take by mouth Active rosuvastatin [...] 10/10/2021 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 Aortic atherosclerosis 10/10/2021 Encounters Date Type Department Care Team Description 01/29/2024 11:00 AM SPINNING FRAME CHANGER Office Visit [facility] Cardiology at [address] [place] [address] Braden Jaimes MD Aortic atherosclerosis (HCC) (Primary Dx); Essential hypertension; Mixed hyperlipidemia; QUEENIE (obstructive sleep apnea); Dizziness; Statin myopathy; Nonrheumatic tricuspid valve regurgitation from Last 3 Months Surgical History Surgery Date Site/Laterality Comments KNEE SURGERY SHOULDER SURGERY HYSTERECTOMY CHOLECYSTECTOMY Medical History Medical History Date Comments Carcinoma of breast (HCC) Tricuspid regurgitation Hypertension Heart murmur Anemia Anxiety Asthma Family History Medical History Relation Name Comments Cancer Father Heart disease Father Kidney disease Mother Relation Name Status Comments Father Mother Social History Tobacco Use Types Packs/Day Years Used Date Smoking Tobacco: Never Smokeless Tobacco: Never Tobacco Cessation:Counseling Given: Not Answered Comments Unknown Sex and Gender Information Value Date Recorded Sex Assigned at Not on file Legal Sex Female 8:53 PM SPINNING FRAME CHANGER Gender Identity Not on file Sexual Orientation Not on file Obstetrics History Last Filed Vital Signs Vital Sign Reading Time Taken Comments Blood Pressure 120/80 01/29/2024 12:25 PM SPINNING FRAME CHANGER Pulse 80 01/29/2024 11:11 AM SPINNING FRAME CHANGER Temperature - - Respiratory Rate - - Oxygen Saturation 96% 01/29/2024 11:11 AM SPINNING FRAME CHANGER Inhaled Oxygen Concentration - - Weight 84.4 kg (186 lb) 01/29/2024 11:11 AM SPINNING FRAME CHANGER Height 172.7 cm (5' 8 ) 01/29/2024 11:11 AM SPINNING FRAME CHANGER Body Mass Index 28.28 01/29/2024 11:11 AM SPINNING FRAME CHANGER Plan of Treatment Health Maintenance Due Date Last Done Comments Breast Cancer Screening-Mammogram 1961 Colon Cancer Screening-Colonoscopy 1961 Depression Screening 1961 Hepatitis C Screening 1961 Regular Well Visit/Exam 18-64 1979 Pneumococcal vaccine <65 (1 of 2 - PCV) 1980 Zoster Vaccine (1 of 2) 1980 Covid-19 Vaccine (4 - 2023-2 5 season) 2023 02/04/2021, 05/10/2020, 04/03/2020 DTaP/Tdap/Td Vaccine (4 - Td or Tdap) 05/03/2033 05/04/2023, 09/21/2014, 08/24/2006, Additional history exists Hepatitis B Screening Completed 08/24/2005 , 03/18/1998, 02/05/1998 Influenza Vaccine Completed 12/25/2023, , 12/16/2020, Additional history exists Procedures Procedure Name Priority Date/Time Associated Diagnosis Comments ELECTROCARDIOGRAM REPORT Routine 024 9:11 AM SPINNING FRAME CHANGER Nonrheumatic tricuspid valve regurgitation from Last 3 Months Results * Electrocardiogram Report (01/29/2024 9:11 AM SPINNING FRAME CHANGER) Braden Jaimes MD ECG ORDERABLES Final Res ult from Last 3 Months Insurance [employer] ACC[employer] MEDICARE [employer] Member Subscriber Plan / Payer (Ef fective 2019-Present) Name:Colleen Sheth Relation to Subscriber:Self Name:Colleen Sheth Payer ID:[id number] (NAIC) Type: [employer] Address: [address] [place] [id number] MEDICARE Care Teams Wrecking Car Driver Relationship Specialty Start Date End Date Sanford Jorge MD [address] [place] [address] [place] [address] PCP - General Family Practice 10/06/21
--- OUTSIDE RECORDS SUMMARY | 2024-04-18 10:25 | XMS_ITS | Encounter Summary ---
Author Organization [facility] Address [address] [place] [address] Care Team Providers Care Busboy Name Role Phone Jun Payton MD Unavailable KINJAL Hendricks Angela Primary Care Provider Encounter Details Date Type Department Care Team (Late st Contact Info) Description 08/23/2022 [employer]hart Message Enc [facility] - [facility] [address] [place] [address] [place], [facility] Provider Air Quality Message Social History Tobacco Use Types Packs/Day Years Used Date Smoking Tobacco: Never Smokeless Tobacco: Never Comments:PCP to guidance counselor. Alcohol Use Standard Drinks/Week Comments No 0 (1 standard drink = 0.6 oz pur e alcohol) AUDIT-C Answer Date Recorded Frequency of Alcohol Consumption Never 02/15/2018 Average Number of Drinks Not on file 018 Frequency of Binge Drinking Not on file 01/27 PHQ-2 Answer Date Recorded Patient Health Questionnaire-2 Score 0 08/18/2022 Comments No Sex and Gender Information Value Date Recorded Sex Assigned at Female 04/11/2024 2:48 PM CALENDER FEEDER Legal Sex Female 9:56 PM CDT Gender Identity Not on file Sexual Orientation Not on file Occupation Industry Job Start Date Job End Date [employer] Not on file Not on file Not on file COVID-19 Exposure Response Date Recorded In the last 10 days, have yo u been in contact with someone who was confirmed or suspected to have Coronavirus/COVID-19? No / Unsure 08/01/2022 10:49 AM CDT documented as of this encounter Plan of Treatment Upcoming Encounters Date Type Department Care Team (Late st Contact Info) Description 07/10/2024 9:20 AM CDT Office Visit [address] [place], [place] [id number] [facility] [address] [place] [address] 08/11/2024 10:00 AM CDT Office Visit [address] [place] [address] Tramaine Lu MD [address] [place] [address] documented as of this encounter Visit Diagnoses Not on filedocumented in this encounter Additional Health Concerns Infection Onset Date Last Indicated Resolved Time COVID-19 Rule Out 12/08/2022 12/08/2022 12/08/2022 2:40 PM CDT COVID-19 Rule Out 10/30/2023 10/30/2023 10/30/2023 12:11 PM CDT Assessment Noted Time PHQ-9 Depression Total Score: 0 02/14/20 9:18 AM CALENDER FEEDER documented as of this encounter Care Teams Busboy Relationship Specialty Start Date End Date Rossana Lu V [facility] [address] [place] [address] PCP - General Nurse Practitioner Family 06/16/22 Jun Payton MD Three [facility]. [facility] [address] [place] [address] Vern Stock Car Driver CARDIOVASCULAR DISEASE 07/28/15 documented as of this encounter
--- OUTSIDE RECORDS SUMMARY | 2024-04-18 10:25 | XMS_ITS | Encounter Summary ---
Author Organization [facility] Address [address] [place] [address] Care Team Providers Care Surveying Teacher Name Role Phone Mustapha Yorkedd Parkinson DO Primary Care Provider [phone] Sil De La Rosa MD, Robert Unavailable [phone] Yeager [facility] Unavailable [phone] Jun Payton MD Unavailable [phone] Genevieve Cai [facility] Primary Care Provider Unav ailable DevaseZenaida wetzel MD Primary Care Pr ovider Unavailable KINJAL Hendricks Angela Primary Care Provider Encounter Details Date Type Department Care Team (Late st Contact Info) Description 09/15/2014 Abstract [facility] CONVERSION [address] [place] [address] , Generic Conversion, Social History Tobacco Use Types Packs/Day Years Used Date Smoking Tobacco: Never Comments Unknown Sex and Gender Information Value Date Recorded Sex Assigned at Female 04/11/2024 2:48 PM CAREER DEVELOPMENT DIRECTOR Legal Sex Female 9:56 PM CDT Gender Identity Not on file Sexual Orientation Not on file documented as of this encounter Plan of Treatment Upcoming Encounters Date Type Department Care Team (Late st Contact Info) Description 07/10/2024 9:20 AM CDT Office Visit [address] [place] [address] Rossana Lu FNP-[address] [place] [address] 08/11/2024 10:00 AM CDT Office Visit [facility] [address] [place] [id number] Tramaine Lu MD [address] [place] [id number] documented as of this encounter Visit Diagnoses Not on filedocumented in this encounter Additional Health Concerns Infection Onset Date Last Indicated Resolved Time COVID-19 Rule Out 01/12/2021 01/12/2021 01/12/2021 8:33 PM CAREER DEVELOPMENT DIRECTOR COVID-19 Rule Out 03/03/2021 03/03/2021 03/03/2021 2:47 PM CAREER DEVELOPMENT DIRECTOR COVID-19 Rule Out 03/04/2021 03/04/2021 03/05/2021 4:56 AM CAREER DEVELOPMENT DIRECTOR COVID-19 Rule Out 04/29/2021 04/29/2021 04/29/2021 11:42 AM CAREER DEVELOPMENT DIRECTOR COVID-19 Rule Out 04/29/2021 04/29/2021 04/29/2021 9:51 PM CAREER DEVELOPMENT DIRECTOR COVID-19 Rule Out 02/13/2022 02/13/2022 02/13/2022 9:46 AM CAREER DEVELOPMENT DIRECTOR COVID-19 Rule Out 02/13/2022 02/13/2022 02/14/2022 8:00 PM CAREER DEVELOPMENT DIRECTOR COVID-19 Rule Out 12/08/2022 12/08/2022 12/08/2022 2:40 PM CDT COVID-19 Rule Out 10/30/2023 10/30/2023 10/30/2023 12:11 PM CDT documented as of this encounter Care Teams Surveying Teacher Relationship Specialty Start Date End Date Kiara York DO [address] [place] [id number] PCP - General FAMILY PRACTICE 10/16/16 03/17/18 Genevieve Cai FNP [facility] [address] [place] [address] PCP - General FAMILY PRACTICE 03/18/18 10/27/19 Zenaida Maldonado MD Three [facility]. [facility] [address] [place] [address] PCP - General FAMILY PRACTICE 10/28/19 06/15/22 Rossana Lu V, ROAD FREIGHT CONDUCTOR- [address] [place] [address] PCP - General Nurse Practitioner Family 06/16/22 Seng Mujica MD [address] [place] [address] [place] Glue Maker Bone CARDIOVASCULAR DISEASE 07/28/15 10/27/16 Jenny Yeager, [facility]- [address] [place] [address] [address] [place] [id number] NURSE PRACTITIONER 10/16/16 10/27/16 Jun Payton MD Three [facility]. [address] [place] [address] [place] Glue Maker Bone CARDIOVASCULAR DISEASE 07/28/15 documented as of this encounter
--- OUTSIDE RECORDS SUMMARY | 2024-04-18 10:25 | XMS_ITS | Continuity of Care Document ---
Author Organization [facility] Address [address] [place] [address] Phone Care Team Providers Care Coat Presser Name Role Phone Administrative, Provider Unavailable Unavail able Procedures Procedure Date Medical Record Copy Medical Record Copy Per Page Affidavit Advance Directives Directive Yes / No Effective Date File Name No Information Encounters Encounter Description Practice Location Reason(s) For Visit Diagnoses Date Provider Providers Copied on Encounter [facility], [address] [place], [place] [address] [place], [place], [id number], [place] tel:[phone] [facility] No Information 2[address] Administrative Provider. [address] [place] [address], [place] [address], [place], [id number], . tel:[phone] Family History Family Member Type Diagnosis Age At Onset No Information Payers Payer name Insurance type Covered alliance party ID Authoriza tion(s) No Information Social History [...]
--- OUTSIDE RECORDS SUMMARY | 2024-04-18 10:25 | XMS_ITS | Encounter Summary ---
Author Organization [facility] Address [address] [place] [address] Care Team Providers Care Director Cardiovascular Name Role Phone Jun Payton MD Unavailable [phone] Zenaida Maldonado MD Primary Care Pr ovider Unavailable KINJAL Hendricks Angela Primary Care Provider Encounter Details Date Type Department Care Team ([facility] Contact Info) Description 01/11/2022 Ok[employer]ros Message Enc [facility] Multispecialty Care - [address] [place], [place] [id number] [employer], [facility] Provider Appt Social History Tobacco Use Types Packs/Day Years Used Date Smoking Tobacco: Never Smokeless Tobacco: Never Comments:PCP to psychologist counseling. 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 Contact Info) Description 07/10/2024 9:20 AM CDT Office Visit [address] [place] [address] Rossana Lu V [facility] [address] [place] [address] 08/11/2024 10:00 AM CDT Office Visit [address] [place], [place] [phone] Tramaine Lu MD [address] [place], [place] [id number] documented as of this encounter Visit Diagnoses Not on filedocumented in this encounter Additional Health Concerns Infection Onset Date Last Indicated Resolved Time COVID-19 Rule Out 02/13/2022 02/13/2022 02/13/2022 9:46 AM SAFETY COORDINATOR COVID-19 Rule Out 02/13/2022 02/13/2022 02/14/2022 8:00 PM SAFETY COORDINATOR COVID-19 Rule Out 12/08/2022 12/08/2022 12/08/2022 2:40 PM CDT COVID-19 Rule Out 10/30/2023 10/30/2023 10/30/2023 12:11 PM CDT Assessment Noted Time PHQ-9 Depression Total Score: 12 022 10:54 AM SAFETY COORDINATOR documented as of this encounter Care Teams Director Cardiovascular Relationship Specialty Start Date End Date Zenaida Maldonado MD [facility]. [facility] [address] [place] [address] PCP - General FAMILY PRACTICE 10/28/19 06/15/22 Rossana Lu V [facility] [address] [place] [address] PCP - General Nurse Practitioner Family 06/16/22 Jun Payton MD [facility]. [facility] [address] [place] [address] Vern Helicopter Pilot Instructor CARDIOVASCULAR DISEASE 07/28/15 documented as of this encounter
== END 2024-04-18 09:49 | disposition home or self-care (01) ==
LOC: ANHIMG 09:50
PROVIDERS: Visit Provider Internal Medicine Hematology & Oncology
DX: Z12.31 Encounter for screening mammogram for malignant neoplasm of breast (principal); R92.8 Other abnormal and inconclusive findings on diagnostic imaging of breast
CPT/HCPCS: 77063; 77067

== ENCOUNTER 2024-05-07 10:09 | Outpatient (CLI) | payer MEDICARE, BC, SELFPAY ==
--- NOTE | ~2024-05-07 | MM_ITS ---
EXAMINATION: MM diagnostic sukhjinder BI w ruddy HISTORY: Bilateral breast asymmetries TECHNIQUE: Additional 3-D tomosynthesis images of the breasts were performed and synthetic 2-D images were generated. CAD analysis was submitted and interpreted. COMPARISON: 04/18/2024, 03/23/2023, 03/20/2022 BREAST PARENCHYMAL COMPOSITION:Dense: The breasts are heterogeneously dense, which may obscure small masses. FINDINGS: Breast asymmetries effaces with spot compression. No persistent mass lesion or suspicious d istortion seen. No suspicious microcalcification. IMPRESSION: No mammographic evidence for malignancy. BI-RADS Category 1: Negative Reviewed, dictated and finalized at location .
--- OUTSIDE RECORDS SUMMARY | 2024-05-07 11:18 | XMS_ITS | Referral Summary ---
Author Organization [facility] [address] Address [address] [place] [address] Care Team Providers Care Relief Mate Name Role Phone Sanford Jorge MD Primary Care Provider [phone] Allergies Active Allergy Reactions Criticality Noted Date Comments Amoxicillin Rash Medium 04/12/2011 Yeast infection specifically Yeast infection specifically Yeast infection specifically Yeast infection specifically Hydrocodone-Acetaminop hen Nausea & Vomiting,Nausea only Low 04/10/2014 Iodine Nausea & Vomiting,Nausea And Vomiting,Other (See comments),Rash,Short ness of breath,Vomiting High 08/06/2015 Hot, break-out, faint Hot, break-out, faint Lisinopril Cough Medium 05/18/2011 Iyhkvly-Tre-Exu Reductase Inhibitors Muscle pain Medium 10/10/2021 Medications fluticasone propion-salmeteroL (ADVAIR DISKUS) 250-50 mcg/dose diskus inhaler INHALE 1 PUFF INTO THE LUNGS TWICE A DAY 2 Active vitamin E acetate (VITAMIN E ORAL) Take by mouth Active VIT B COMP NO.7-KXPYF-W-BIOTI N ORAL Take by mouth Active rosuvastatin [...] on file Legal Sex Female 8:53 PM DAIRY 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 Gender Identity Not on file Sexual Orientation Not on file Last Filed Vital Signs Vital Sign Reading Time Taken Comments Blood Pressure 120/80 01/29/2024 12:25 PM DAIRY CATTLE FARM WORKER Pulse 80 01/29/2024 11:11 AM DAIRY CATTLE FARM WORKER Temperature - - Respiratory Rate - - Oxygen Saturation 96% 01/29/2024 11:11 AM DAIRY CATTLE FARM WORKER Inhaled Oxygen Concentration - - Weight 84.4 kg (186 lb) 01/29/2024 11:11 AM DAIRY CATTLE FARM WORKER Height 172.7 cm (5' 8 ) 01/29/2024 11:11 AM DAIRY CATTLE FARM WORKER Body Mass Index 28.28 01/29/2024 11:11 AM DAIRY CATTLE FARM WORKER Plan of Treatment Not on file Insurance ANTHEM ACCESS Member Subscriber Plan / Payer (Ef fective 2019-Present) Name:Colleen Sheth Relation to Subscriber:Self Name:Colleen Sheth Payer ID:[id number] (NAIC) Type:[facility] Address: [address] [place] [id number] MEDICARE ANTHEM ACCESS MEDICARE Care Teams Relief Mate Relationship Specialty Start Date End Date Sanford Jorge MD [address] [place] [address] [place] [address] PCP - General Family Practice 10/06/21
--- OUTSIDE RECORDS SUMMARY | 2024-05-07 11:18 | XMS_ITS | Encounter Summary ---
Author Organization [facility] Address [address] [place] [address] Care Team Providers Care Outboard Motor Inspector Name Role Phone Jun Payton MD Unavailable [phone] Zenaida Maldonado MD Primary Care Pr ovider Unavailable KINJAL Hendricks Angela Primary Care Provider Encounter Details Date Type Department Care Team ([facility] Contact Info) Description 01/11/2022 [employer] Message Enc [facility] Medical Group Multispecialty Care - [address] [place], [place] [id number] Right Skills, [facility] Provider Appt Social History Tobacco Use Types Packs/Day Years Used Date Smoking Tobacco: Never Smokeless Tobacco: Never Comments:PCP to career technical counselor. 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 [place], [place] [phone] documented as of this encounter Visit Diagnoses Not on filedocumented in this encounter Additional Health Concerns Infection Onset Date Last Indicated Resolved Time COVID-19 Rule Out 02/13/2022 02/13/2022 02/13/2022 9:46 AM SECTION HAND COVID-19 Rule Out 02/13/2022 02/13/2022 02/14/2022 8:00 PM SECTION HAND COVID-19 Rule Out 12/08/2022 12/08/2022 12/08/2022 2:40 PM CDT COVID-19 Rule Out 10/30/2023 10/30/2023 10/30/2023 12:11 PM CDT Assessment Noted Time PHQ-9 Depression Total Score: 12 022 10:54 AM SECTION HAND documented as of this encounter Care Teams Outboard Motor Inspector Relationship Specialty Start Date End Date Zenaida Maldonado MD [facility]. [address] [place] [address] PCP - General FAMILY PRACTICE 10/28/19 06/15/22 Rossana Lu V [facility] [address] [place] [address] PCP - General Nurse Practitioner Family 06/16/22 Jun Payton MD [facility]. [address] [place] [address] Vern Buyer Broker CARDIOVASCULAR DISEASE 07/28/15 documented as of this encounter
--- OUTSIDE RECORDS SUMMARY | 2024-05-07 11:18 | XMS_ITS | Encounter Summary ---
Author Organization [facility] Address [address] [place] [address] Care Team Providers Care Manager Corporate Strategy Name Role Phone Unavailable Primary Care Provider Unavailabl e Encounter Details Date Type Department Care Team (Late Contact Info) Description 05/07/2024 Orders Only [facility] Oncology and Hematology - Art [address] [place] [address] Samir Sahu MD [facility] [address] [place] [phone] Abnormal mammogram of both breasts (Primary Dx) Social History Tobacco Use Types Packs/Day Years Used Date Smoking Tobacco: Never Smokeless Tobacco: Never Alcohol Use Standard Drinks/Week Comments No 0 (1 standard drink = 0.6 oz pur e alcohol) Comments No Sex and Gender Information Value Date Recorded Sex Assigned at Not on file Legal Sex Female 3:02 PM DOOR ASSEMBLER Gender Identity Not on file Sexual Orientation Not on file documented as of this encounter Plan of Treatment Upcoming Encounters Date Type Department Care Team (Late st Contact Info) Description 06/02/2024 10:00 AM CDT Office Visit [facility] Oncology and Hematology - Art Ximena [address] [place] [address] Samir Sahu MD [address] [place] [phone] documented as of this encounter Visit Diagnoses Diagnosis Abnormal mammogram of both breasts- Primary documented in this encounter
--- OUTSIDE RECORDS SUMMARY | 2024-05-07 11:18 | XMS_ITS | Encounter Summary ---
Author Organization [facility] Address [address] [place] [address] Care Team Providers Care Slitting And Shipping Supervisor Name Role Phone Jun Payton MD Unavailable [phone] KINJAL Hendricks Angela Primary Care Provider Encounter Details Date Type Department Care Team (Late st Contact Info) Description 08/23/2022 am[employer]im[employer] Message Enc [facility] Medical Group - [facility] [address] [place] [id number] [place], [facility] Provider Air Quality Message Social History Tobacco Use Types Packs/Day Years Used Date Smoking Tobacco: Never Smokeless Tobacco: Never Comments:PCP to aids counselor. 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 [address] documented as of this encounter Visit Diagnoses Not on filedocumented in this encounter Additional Health Concerns Infection Onset Date Last Indicated Resolved Time COVID-19 Rule Out 12/08/2022 12/08/2022 12/08/2022 2:40 PM CDT COVID-19 Rule Out 10/30/2023 10/30/2023 10/30/2023 12:11 PM CDT Assessment Noted Time PHQ-9 Depression Total Score: 0 02/14/20 9:18 AM ACCOUNTING OFFICER documented as of this encounter Care Teams Slitting And Shipping Supervisor Relationship Specialty Start Date End Date Rossana Lu V [facility] [address] [place] [address] PCP - General Nurse Practitioner Family 06/16/22 Jun Payton MD [facility]. [facility] [address] [place] [address] Vern Buddhist Monk CARDIOVASCULAR DISEASE 07/28/15 documented as of this encounter
--- OUTSIDE RECORDS SUMMARY | 2024-05-07 11:18 | XMS_ITS | Clinical Summary ---
Author Organization [facility] [address] Address [address] [place] [address] Care Team Providers Care Family Nurse Name Role Phone Sanford Jorge MD Primary Care Provider [phone] Allergies Active Allergy Reactions Criticality Noted Date Comments Amoxicillin Rash Medium 04/12/2011 Yeast infection specifically Yeast infection specifically Yeast infection specifically Yeast infection specifically Hydrocodone-Acetaminop hen Nausea & Vomiting,Nausea only Low 04/10/2014 Iodine Nausea & Vomiting,Nausea And Vomiting,Other (See comments),Rash,Short ness of breath,Vomiting High 08/06/2015 Hot, break-out, faint Hot, break-out, faint Lisinopril Cough Medium 05/18/2011 Czfufdr-Dwa-Agk Reductase Inhibitors Muscle pain Medium 10/10/2021 Medications fluticasone propion-salmeteroL (ADVAIR DISKUS) 250-50 mcg/dose diskus inhaler INHALE 1 PUFF INTO THE LUNGS TWICE A DAY 2 Active vitamin E acetate (VITAMIN E ORAL) Take by mouth Active VIT B COMP NO.6-TUGWC-H-BIOTI N ORAL Take by mouth Active rosuvastatin [...] 10/10/2021 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 Aortic atherosclerosis 10/10/2021 Surgical History Surgery Date Site/Laterality Comments KNEE [...] on file Legal Sex Female 8:53 PM DIGITAL MUSIC INSTRUCTOR Gender Identity Not on file Sexual Orientation Not on file Obstetrics History Last Filed Vital Signs Vital Sign Reading Time Taken Comments Blood Pressure 120/80 01/29/2024 12:25 PM DIGITAL MUSIC INSTRUCTOR Pulse 80 01/29/2024 11:11 AM DIGITAL MUSIC INSTRUCTOR Temperature - - Respiratory Rate - - Oxygen Saturation 96% 01/29/2024 11:11 AM DIGITAL MUSIC INSTRUCTOR Inhaled Oxygen Concentration - - Weight 84.4 kg (186 lb) 01/29/2024 11:11 AM DIGITAL MUSIC INSTRUCTOR Height 172.7 cm (5' 8 ) 01/29/2024 11:11 AM DIGITAL MUSIC INSTRUCTOR Body Mass Index 28.28 01/29/2024 11:11 AM DIGITAL MUSIC INSTRUCTOR Plan of Treatment Health Maintenance Due Date [...] Completed 12/25/2023, , 12/16/2020, Additional history exists Insurance [employer] MEDICARE [facility] MEDICARE Care Teams Family Nurse Relationship Specialty Start Date End Date Sanford Jorge MD [address] [place] [address] [place] [address] PCP - General Family Practice 10/06/21
--- OUTSIDE RECORDS SUMMARY | 2024-05-07 11:18 | XMS_ITS | Encounter Summary ---
Author Organization [facility] Address [address] [place] [address] Care Team Providers Care Resaw Tailer Name Role Phone Mustapha Yorkedd Parkinson DO Primary Care Provider [phone] Sil De La Rosa MD, Robert Unavailable [phone] Jenny Yeager [facility] Unavailable [phone] Jun Payton MD Unavailable [phone] Genevieve Cai [facility] Primary Care Provider Unav ailable DevaseZenaida wetzel MD Primary Care Pr ovider Unavailable KINJAL Hendricks Angela Primary Care Provider Encounter Details Date Type Department Care Team (Late st Contact Info) Description 09/15/2014 Abstract [facility] [address] [place] [address] , Generic Conversion, Social History Tobacco Use Types Packs/Day Years Used Date Smoking Tobacco: Never Comments Unknown Sex and Gender Information Value Date Recorded Sex Assigned at Female 04/11/2024 2:48 PM FOOD SANITARIAN Legal Sex Female 9:56 PM CDT Gender Identity Not on file Sexual Orientation Not on file documented as of this encounter Plan of Treatment Upcoming Encounters Date Type Department Care Team (Late st Contact Info) Description 07/10/2024 9:20 AM CDT Office Visit [address] [place] [address] Rossana Lu FNP-[address] [place] [address] 08/11/2024 10:00 AM CDT Office Visit [facility] [address] [place] [id number] Tramaine Lu MD [address] [place] [id number] documented as of this encounter Visit Diagnoses Not on filedocumented in this encounter Additional Health Concerns Infection Onset Date Last Indicated Resolved Time COVID-19 Rule Out 01/12/2021 01/12/2021 01/12/2021 8:33 PM FOOD SANITARIAN COVID-19 Rule Out 03/03/2021 03/03/2021 03/03/2021 2:47 PM FOOD SANITARIAN COVID-19 Rule Out 03/04/2021 03/04/2021 03/05/2021 4:56 AM FOOD SANITARIAN COVID-19 Rule Out 04/29/2021 04/29/2021 04/29/2021 11:42 AM FOOD SANITARIAN COVID-19 Rule Out 04/29/2021 04/29/2021 04/29/2021 9:51 PM FOOD SANITARIAN COVID-19 Rule Out 02/13/2022 02/13/2022 02/13/2022 9:46 AM FOOD SANITARIAN COVID-19 Rule Out 02/13/2022 02/13/2022 02/14/2022 8:00 PM FOOD SANITARIAN COVID-19 Rule Out 12/08/2022 12/08/2022 12/08/2022 2:40 PM CDT COVID-19 Rule Out 10/30/2023 10/30/2023 10/30/2023 12:11 PM CDT documented as of this encounter Care Teams Resaw Tailer Relationship Specialty Start Date End Date Kiara York DO [address] [place] [phone] PCP - General FAMILY PRACTICE 10/16/16 03/17/18 Genevieve Cai FNP [facility] [address] [place] [address] PCP - General FAMILY PRACTICE 03/18/18 10/27/19 Zenaida Maldonado MD [facility]. [address] [place] [address] PCP - General FAMILY PRACTICE 10/28/19 06/15/22 Rossana Lu V, BOX LINING MACHINE OPERATOR- [address] [place] [address] PCP - General Nurse Practitioner Family 06/16/22 Seng Mujica MD [address] [place] [address] [place] Interviewing Clerk CARDIOVASCULAR DISEASE 07/28/15 10/27/16 Jenny Yeager, [facility]- [address] [place] [address] [address] [place] [id number] NURSE PRACTITIONER 10/16/16 10/27/16 Jun Payton MD [facility]. [address] [place] [address] [place] Interviewing Clerk CARDIOVASCULAR DISEASE 07/28/15 documented as of this encounter
--- OUTSIDE RECORDS SUMMARY | 2024-05-07 11:18 | XMS_ITS | Continuity of Care Document ---
Author Organization [facility] Address [address] [place] [address] Phone Care Team Providers Care Chairman Of The Board Name Role Phone Administrative, Provider Unavailable Unavail able Procedures Procedure Date Medical Record Copy Medical Record Copy Per Page Affidavit Advance Directives Directive Yes / No Effective Date File Name No Information Encounters Encounter Description Practice Location Reason(s) For Visit Diagnoses Date Provider Providers Copied on Encounter [facility], [address] [place], [place] [address]uitpending sale to [facility], [place], [place], [id number], [place] tel:[phone] [facility] No Information 2[address] Administrative Provider. [address] [place] [address], [place] [address], [place], [place], [id number], . tel:[phone] Family History Family Member Type Diagnosis Age [...]
--- OUTSIDE RECORDS SUMMARY | 2024-05-07 11:19 | XMS_ITS ---
Author Organization [facility] Address [address] [place] [address] Phone Care Team Providers Care Engineering Administrator Name Role Phone Unavailable Primary Care Provider Unavailabl e Active Problems Patient Care Coordination No te Formatting of this note migh t be different from the original. Primary Care: Sanford Jorge MD Referring Provider: Sanford Jorge MD [address] [place] [phone] Other: Dr. Xin Scott MD Problem Noted [...] Breast Cancer Survivorship Care Plan Provided by [facility] on 01/21/19 General Information Patient Name: Colleen Sheth Patient : 1960 Care Team Medical Oncologist: Samir Darby Syed M, MD Surgeon: Xin Scott [phone] Primary Care Physician: Dr. Sanford Jorge Nurse [...] IV Estrogen Receptor: Positive Progesterone Receptor: Positive [id number]: Positive Treatment Summary Surgery Left lumpectomy and [...] Functioning Resources Provided to Patient Referrals Provided: [facility] Follow-up and Survivorship Care [...] for a mammogram. Medical Oncologist, Surgeon, and OB/Calender Runner Pelvic examination Continue to visit a cognos bi developer regularly OB/Calender Runner Bone Density Baseline prior to Anastrozole, Letrozole, [...] echocardiogram in February 2019 RESOURCES [facility] organizations Cancer Support Community of [facility] cancer community office which include support groups (including a survivorship group), mentoring, exercise and yoga classes among other ways to get involved and connect with fellow survivors as well as resources for families and caregivers. Website: http://www.cancersupportstl.org/ Livestrong at the [facility] A physical activity and wellness program designed for cancer survivors to help achieve well-being. Contact your local [facility] to get started. The program is free to join and lasts for 12 weeks. Visit the website to see a list of participating locations. Website: https://www.[facility].org/program/livestrong Cancer Information Center at [facility]???s Omer Re[facility] Call or drop by to speak with a social work associate or nurse navigator for questions about financial/food/housing assistance, counseling services, resources for wigs, enterprise security architect referral and general questions about diagnosis, treatment and survivorship. There is also a survivorship monthly support group that meets at [facility]. Call for more information. Website for special events/classes: https://www.[facility]/practice/reva-cancer-center/cance h-hldcbonn-szb-special-events/ National nonprofit organizations [employer] Cancer Society/National Cancer Information Center [facility] provides cancer information and support to patients, families, and caregivers. It also supportsresearch, community, education, and advocacy and public policy issues Phone: 8-321-SVH-6676 ( ) Website: www.cancer.org CancerCare Provides free, professional support services to anyone affected by cancer. CancerCare programs include counseling, education, financial assistance and practical help by trained oncology social workers and are free of charge. Phone: 1-434-083-HOPE ( ) Website: www.cancercare.org Cancer Hope Network Cancer Hope Network matches patients and families with trained volunteers who have recovered from asimilar cancer experience. Phone: 8-853-KIDQECJ ( ) Website: www.cancerhopenetwork.org Cancer Support Community Cancer support community is a national organization that provides support groups, stress reduction and cancer education workshops, nutrition guidance, exercise sessions and social events. Phone: 9-951-989-IntroMaps ( ) Website: www.cancersupportcommunity.org National Coalition for Cancer Survivorship NCCS provides information and resources on cancer support, advocacy, and itgwfxg-de-wect issues to cancer survivors and loved ones. Phone: 3-896-SIVN-YES ( ) Website: www.canceradvocacy.org Patient Advocate Foundation [facility] provides education, legal counseling, and referrals to [...]
--- OUTSIDE RECORDS SUMMARY | 2024-05-07 11:19 | XMS_ITS | Clinical Summary ---
Author Organization [facility] Address [address] [place] [address] Phone Care Team Providers Care Delivery Crew Worker Name Role Phone Unavailable Primary Care Provider [...] 4 8 Active fluticasone (FLONASE) 50 mcg/spray [place], Suspension by See Admin Instructions route 1 [...] unit Capsule Active naloxone (NARCAN) 4 mg/spray [place], Non-Aerosol Administer 1 spray (4 mg) in [...] Take by mouth. Active VIT B COMP NO.8-BHFSZ-R-BIO TIN ORAL Take by mouth. Activ e [...] Jorge MD Referring Provider: Sanford Jorge MD [address] [place] [address] [place] [address] Other: Dr. Xin Scott MD Problem Noted [...] NEGATIVE genetic testing. The patient underwent the ZhongSou my risk genetic testing for hereditary cancer [...] Encounters Date Type Department Care Team Description 05/07/2024 Orders Only [facility] Oncology and Hematology - Art [address] [place] [address] Samir Sahu MD Abnormal mammogram of both breasts (Primary Dx) 04/24/2024 Orders Only [facility] Oncology and Hematology - Art [address] [place] [address] Samir Sahu MD Abnormal mammogram of both breasts (Primary Dx) 04/18/2024 Orders Only [facility] Oncology and Hematology - Art Elisa [address] [place] [address] Samir Sahu MD 04/15/2024 External Device Data STL ABSTRACTION Provider, [...] on file Legal Sex Female 3:02 PM LACER AND TIER Gender Identity Not on file Sexual Orientation [...] Description 06/02/2024 10:00 AM CDT Office Visit [facility] Oncology and Hematology - Art [address] [facility] [address] [place] [address] Samir Sahu MD [address] [facility] [address] [place] [address] Health Maintenance Due Date Last Done Comments Pre-Diabetes and Diabetes Screening 1961 ZOSTER VACCINE (1 of 2) 1980 CERVICAL CANCER SCREENING 1991 FIT-DNA Q 3 years 2006 Flex Sig/CT Colonography Q 5 years 2006 FIT/FOBT Q 1 year 04/02/2019 04/02/2018 INFLUENZA VACCINE (#1) 2023 12/16/2020, 2017 Preventative Visit- Commercial 02/27/2024 BREAST CANCER SCREENING 04/18/2025 04/18/19 25, 03/23/2023, 03/15/2020, Additional history exists COLORECTAL SCREENING 06/29/2031 06/28/2021, 07/27/19 12 Colorectal Cancer Screening 06/29/2031 DTAP/TDAP/TD VACCINES (4 - T d or Tdap) 05/03/2033 05/04/2023, 09/21/2014, 08/24/2006, Additional history exists RSV VACCINE (60+ or ) (1 - 1-dose 75+ series) 2036 Medical Devices Implanted Type Area Mastercam Programmer Device Identifier Shelf Expiration Date Model / Serial / Lot Hemostatic Surgicel 2x14in 1950 - [id number] Implanted:Qty : 1 on 02/08/2018 by Xin Scott MD at [facility] Hemostatic Left: Axilla [employer]J- [employer] [id number] 10/26/20211950 / / [id number] Hemostatic Surgicel 2x14in 1950 - [id number] Implanted:Qty : 1 on 02/25/2018 by Xin Scott MD at [facility] Hemostatic Left: Breast [employer] 06/25/20221950 / / [id number] Explanted Type Area Mastercam Programmer Device Identifier Shelf Expiration Date Model / Serial / Lot Port Pwrprt Clr Du 8fr Mri [id number] - [id number] Implanted:Qty : 1 on 03/27/2018 by Xin Scott MD at [facility] Explanted:Qty : 1 on 02/09/2020 by Xin Scott MD at [facility] Port Right: Chest CR BARD- [employer] [id number] 05/27/2019 [id number] / / [id number] Procedures Procedure Name Priority Date/Time Associated Diagnosis Comments MAMMO SCREENING BILAT Routine 04/18/2024 11:45 AM LACER AND TIER OCCULT BLOOD IMMUNOASSAY, COLORECTAL SCREEN Routine 04/02/2018 from Last 3 Months or Most Recently Relevant to Health Maintenance Results * MAMMO SCREENING BILAT (04/18/2024 11:45 AM LACER AND TIER) Anatomical Region Laterality Modality Breast Bilateral Other us Samir Sahu MD MAMMO ORDERABLES Final Result * OCCULT BLOOD IMMUNOASSAY, COLORECTAL SCREEN (04/02/2018) Stool STOOL SPECIMEN / Unknown us Abstract Provider BODY FLUIDS AND STOOLS Final R esult [facility] from Last 3 Months or Most Recently Relevant to Health Maintenance Insurance [facility] BLUE ACCESS CHOICE MEDICARE PART A AND B RX [employer] BS BLUE ACCESS CHOICE [facility] MEDICARE PART A AND B Advance Directives For more information, please contact: [phone] * Full Code (Latest Code Status on File) Date Activated Date Inactivated Comments 03/27/2018 6:52 AM 03/27/2018 11:34 AM * Full Code Date Activated Date Inactivated Comments 02/08/2018 2:30 PM 02/08/2018 8:51 PM
--- OUTSIDE RECORDS SUMMARY | 2024-05-07 11:19 | XMS_ITS | Encounter Summary ---
Author Organization [facility] Address [address] [place] [address] Care Team Providers Care Spotter Driver Name Role Phone Sanford Jorge MD Primary Care Provider [phone] Encounter Details Date Type Department Care Team (Late st Contact Info) Description 03/19/2018 Chart Note [facility] Radiation Therapy [address] [place] [address] [place] [address] [place] [address] Social History Tobacco Use Types Packs/Day Years Used Date Smoking Tobacco: Never Smokeless Tobacco: Never Alcohol Use Standard Drinks/Week Comments No 0 (1 standard drink = 0.6 oz pur e alcohol) Comments No Sex and Gender Information Value Date Recorded Sex Assigned at Not on file Legal Sex Female 3:02 PM GEOSPATIAL SYSTEMS INTEGRATOR Gender Identity Not on file Sexual Orientation Not on file documented as of this encounter Plan of Treatment Upcoming Encounters Date Type Department Care Team (Late st Contact Info) Description 06/02/2024 10:00 AM CDT Office Visit [facility] Oncology and Hematology - Art [address] [facility] [address] [place] [address] Samir Sahu MD [address] [facility] [address] [place] [address] documented as of this encounter Visit Diagnoses Not on filedocumented in this encounter Care Teams Spotter Driver Relationship Specialty Start Date End Date Sanford Jorge MD [address] [place] [address] [place] [address] PCP - General Family Practice 01/11/18 11/29/23 documented as of this encounter
--- OUTSIDE RECORDS SUMMARY | 2024-05-07 11:19 | XMS_ITS | Clinical Summary ---
Author Organization [facility] Address [address] [place] [address] Care Team Providers Care Asphalt Distributor Operator Name Role Phone Jun Payton MD Unavailable [phone] Hendricks Angela Primary Care Provider [...] mouth daily. 90 tablet 04/11/19 25 Active Phentermine HCl 8 MG TabIndications: Overweight (BMI 25.0-29.9) Take 8 mg by mouth 2 (two) times a day. 60 tablet 04/11/19 25 Active vitamin D3, cholecalciferol , 125 mcg capsuleIndicati ons:Vitamin D deficiency TAKE 1 CAPSULE (125 MCG TOTAL) BY MOUTH DAILY. 90 capsule 05/03/19 25 Active losartan (COZAAR) 25 MG tabletIndicatio [...] 30 tablet 03/13/19 25 025 Discontinued(Re order) vitamin D3, cholecalciferol , 125 mcg capsuleIndicati ons:Vitamin D deficiency Take 1 capsule (125 mcg total) by mouth daily. 90 capsule 04/11/19 25 025 Discontinued Active Problems Problem Noted Date Diagnosed Date Controlled substance agreement signed 04/11/2024 Overview (04/11/2024): Last 04/11/24 - phentermine History of anemia 04/27/2023 History of breast cancer 04/27/2023 Chronic heart failure with p reserved ejection fraction (CMS/HCC HHS/HCC) 06/09/2022 History of vitamin D deficiency [...] ductal carcinoma of breast, stage 2, left ([facility]/HCC [facility]/HCC) 02/15/2018 Overview (03/31/2020): Stage IIb disease ER ME positive HER2/jamin positive High-grade DCIS of left [...] NEGATIVE genetic testing. The patient underwent the Fonix my risk genetic testing for hereditary cancer [...] (01/08/2018): Date Onset: 03/27/2016 Metabolic syndrome 01/05/2016 4 Overview (01/08/2018): Date Onset: 01/05/2016 Encounters Date Type Department Care Team Description 04/18/2024 Scan HEALTH INFO SRVCS Scanned, Doc Med Group Mammogram (SCAN) 04/11/2024 3:00 PM BIODIESEL ENGINE SPECIALIST Office Visit [address] [place] [id number] Tramaine Lu MD Weight Check (WEIGHT MANAGEMENT FOLLOW UP - 8 week weight f/u/) 04/11/2024 Travel 03/13/2024 10:40 AM BIODIESEL ENGINE SPECIALIST Office Visit [address] [place] [id number] Rossana Lu V SAP BW DEVELOPER-BC Follow Up (Pt is here for a 4 wk weight management f/u, Pt states she is doing well) 03/13/2024 Travel from Last 3 Months Immunizations Name [...] Never Tobacco Cessation:Counseling Given: No Comments:PCP to debt counselor. 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 Not on file Not on file Last Filed Vital Signs Vital Sign Reading Time Taken Comments Blood Pressure 132/84 04/11/2024 2:43 PM BIODIESEL ENGINE SPECIALIST Pulse 93 04/11/2024 2:43 PM BIODIESEL ENGINE SPECIALIST Temperature 36.9 C (98.5 F) 04/11/2024 2:43 PM BIODIESEL ENGINE SPECIALIST Respiratory Rate 12 04/11/2024 2:43 PM BIODIESEL ENGINE SPECIALIST Oxygen Saturation 98% 04/11/2024 2:43 PM BIODIESEL ENGINE SPECIALIST Inhaled Oxygen Concentration - - Weight 82.6 kg (182 lb) 04/11/2024 2:43 PM BIODIESEL ENGINE SPECIALIST Height 172.7 cm (5' 8 ) 04/11/2024 2:43 PM BIODIESEL ENGINE SPECIALIST Body Mass Index 27.67 04/11/2024 2:43 PM BIODIESEL ENGINE SPECIALIST Plan of Treatment Upcoming Encounters Date Type Department Care Team (Late st Contact Info) Description 07/10/2024 9:20 AM CDT Office Visit [address] [place] [id number] Rossana Lu V, [facility]- [address] [facility] [address] [place] [id number] 08/11/2024 10:00 AM CDT Office Visit [address] [place] [id number] Tramaine Lu MD [address] [facility] [address] [place] [id number] Health Maintenance Due Date Last Done Comments EGD-Chambers's Surveillance 1961 Annual Physical 1964 Pneumococcal Vaccine: Pediatrics (0 to 5 Years) and At-Risk Patients (6 to 64 Years) (1 of 2 - PCV) 1967 Zoster Vaccines (1 of 2) 2011 RSV Immunization or 60+ Years (1 - Risk 60-74 years 1-dose series) 2021 COVID-19 Vaccine ( season) 2023 02/04/2021, 05/10/2020, 04/03/2020 PHQ-2 (Physician [place]) 02/27/2024 12/31/2023 Mammogram Screening 04/18/2026 04/18/2024, 03/20/2022, 03/17/2021, Additional history exists Colorectal Cancer Screening Colonoscopy [...] Procedure Name Priority Date/Time Associated Diagnosis Comments MAMMOGRAM GENERIC (SCAN ORDER) 04/18/2024 HEPATITIS C ANTIBODY Routine 06/09/2022 9:45 AM CDT Need for hepatitis C screening test COLONOSCOPY GENERIC (SCAN ORDER) Routine 07/27/2011 12:00 AM CDT from Last 3 Months or Most Recently Relevant to Health Maintenance Results * MAMMOGRAM GENERIC (SCAN ORDER) (04/18/2024) Anatomical Region Laterality Modality Other 04/18/2024 us Doc Med Group Scanned SCANNING Final Resu lt * HEPATITIS C ANTIBODY (06/09/2022 9:45 AM CDT) HEPATITIS C AB NON-REACTI VE NON-REACTI VE 06/09/2022 7:33 PM CDT [facility] 06/09/2022 9:45 AM CDT us OLGA Patrick- LABORATORY Final R esult [facility] [address] [place], [place] [address] [phone] * COLONOSCOPY (07/27/2011 12:00 AM CDT) 07/27/2011 us Documents Scanned SCANNING Final Result [facility] from Last 3 Months or Most Recently Relevant to Health Maintenance Insurance [facility] MEDICARE Care Teams Asphalt Distributor Operator Relationship Specialty Start Date End Date Rossana Lu V, SAP BW DEVELOPER-BC [address] [place] [address] [place] [address] PCP - General Nurse Practitioner Family 06/16/22 Jun Payton MD [address] [address] [place] Materials Inspector CARDIOVASCULAR DISEASE 07/28/15
--- OUTSIDE RECORDS SUMMARY | 2024-05-07 11:19 | XMS_ITS | Encounter Summary ---
Author Organization [facility] Address [address] [place] [address] Care Team Providers Care Admissions Evaluator Name Role Phone Jun Payton MD Unavailable [phone] [address] Hendricks Angela Primary Care Provider Reason for Visit * Reason Comments Mammogram (SCAN) Encounter Details Date Type Department Care Team (Late Contact Info) Description 04/18/2024 Scan HEALTH INFO SRVCS Scanned, Doc Med Group Mammogram (SCAN) Social History Tobacco Use Types Packs/Day Years Used Date Smoking Tobacco: Never Passive Smoke Exposure: Never Smokeless Tobacco: Never Comments:PCP to nurses' association counselor. 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 [place], [place] [id number] documented as of this encounter Procedures Procedure Name Priority Date/Time Associated Diagnosis Comments MAMMOGRAM GENERIC (SCAN ORDER) 04/18/2024 documented in this encounter Results * MAMMOGRAM GENERIC (SCAN ORDER) (04/18/2024) Anatomical Region Laterality Modality Other 04/18/2024 us Doc Med Group Scanned SCANNING Final Resu lt documented in this encounter Visit Diagnoses Not on filedocumented in this encounter Additional Health Concerns Assessment Noted Time PHQ-9 Depression Total Score: 0 02/14/20 22 9:18 AM HEAD REFRIGERATION ENGINEER documented as of this encounter Care Teams Admissions Evaluator Relationship Specialty Start Date End Date Rossana Lu FNP-BC [address] [place] [address] [place] [address] PCP - General Nurse Practitioner Family 06/16/22 Jun Payton MD [facility]. [place] [address] [place] [address] Vern Paper Twister Tender CARDIOVASCULAR DISEASE 07/28/15 documented as of this encounter
== END 2024-05-07 10:10 | disposition home or self-care (01) ==
LOC: ANHIMG 10:10
PROVIDERS: Visit Provider Internal Medicine Hematology & Oncology
DX: R92.8 Other abnormal and inconclusive findings on diagnostic imaging of breast (principal)
CPT/HCPCS: 77062; 77066; G0279

== ENCOUNTER 2024-05-22 09:59 | Outpatient (CLI) | payer MEDICARE, BC, SELFPAY ==
[2024-05-22 10:12] LABS: Basophils Absolute Auto 0.1 K/mm3 (0.0-0.1); Eosinophils Absolute Auto 0.2 K/mm3 (0-0.3); Eosinophils Percent Auto 4.4 % (0-4.4); Hematocrit 37.7 % (37.0-47.0); Hemoglobin 12.6 g/dL (12.0-15.0); Immature Granulocyte Absolute 0.01 K/mm3 (0.00-0.031); Immature Granulocyte Percent A 0.2 % (0-0.5); Lymphocytes Absolute Auto 1.32 K/mm3 (0.9-3.2); Lymphocytes Percent Auto 27.4 % (18.3-44.2); Mean Corpuscular HGB Conc 33.4 g/dl (32-36); Mean Corpuscular Hemoglobin 31.8 pg (26-34); Mean Corpuscular Volume 95.2 fl (80-100); Mean Platelet Volume 9.6 fl (7.4-10.4); Monocytes Absolute Auto 0.4 K/mm3 (0.1-0.6); Monocytes Percent Auto 8.7 % (2.6-8.5); Neutrophils Absolute Auto 2.8 K/mm3 (1.3-6.7); Neutrophils Percent Auto 58.3 % (45.5-73.1); Platelet Count Result 274 k/mm3 (150-375); Red Blood Count 3.96 M/mm3 (4.2-5.4); White Blood Count 4.8 K/mm3 (4.5-10.0)
--- OUTSIDE RECORDS SUMMARY | 2024-05-22 10:58 | XMS_ITS | Clinical Summary ---
Author Organization [facility] Address [address] [place] [address] Phone Care Team Providers Care Field Tech Name Role Phone Unavailable Primary Care Provider [...] 4 8 Active fluticasone (FLONASE) 50 mcg/spray [place], Suspension by See Admin Instructions route 1 [...] unit Capsule Active naloxone (NARCAN) 4 mg/spray [place], Non-Aerosol Administer 1 spray (4 mg) in [...] Take by mouth. Active VIT B COMP NO.0-XWQKQ-L-BIO TIN ORAL Take by mouth. Activ e [...] Jorge MD Referring Provider: Sanford Jorge MD [address] [place] [address] [place] [address] Other: Dr. Xin Scott MD Problem Noted [...] NEGATIVE genetic testing. The patient underwent the Panève my risk genetic testing for hereditary cancer [...] Encounters Date Type Department Care Team Description 05/08/2024 Orders Only [facility] Oncology and Hematology - Atr [address] [place] [address] Samir Sahu MD 05/07/2024 Orders Only [facility] Oncology and Hematology - Art [address] [place] [address] Samir Sahu MD Abnormal mammogram of both breasts (Primary Dx) 04/24/2024 Orders Only [facility] Oncology and Hematology - Art [address] [place] [address] Samir Sahu MD Abnormal mammogram of both breasts (Primary Dx) 04/18/2024 Orders Only [facility] Oncology and Hematology - [place] [address] [address] [place] [address] Samir Sahu MD 04/15/2024 External Device Data [...] on file Legal Sex Female 3:02 PM CENTERLESS GRINDER OPERATOR Gender Identity Not on file Sexual [...] Description 06/02/2024 10:00 AM CDT Office Visit [facility] Oncology and Hematology [facility] [address] [facility] [address] [place] [address] Samir Sahu MD [address] [facility] [address] [place] [address] Health Maintenance Due Date Last Done Comments Pre-Diabetes and Diabetes Screening 1961 ZOSTER VACCINE (1 of 2) 1980 FIT-DNA Q 3 years 2006 Flex Sig/CT Colonography Q 5 years 2006 FIT/FOBT Q 1 year 04/02/2019 04/02/2018 INFLUENZA VACCINE (#1) 2023 12/16/2020, 2017 Preventative Visit- Commercial 02/27/2024 BREAST CANCER SCREENING 05/07/2025 05/08/19 25, 04/18/2024, 03/23/2023, Additional history exists COLORECTAL SCREENING 06/29/2031 06/28/2021, 07/27/19 Colorectal Cancer Screening 06/29/2031 DTAP/TDAP/TD VACCINES (4 - T d or Tdap) 05/03/2033 05/04/2023, 09/21/2014, 08/24/2006, Additional history exists RSV VACCINE (60+ or ) (1 - 1-dose 75+ series) 2036 Medical Devices Implanted Type Area Char Filter Operator Helper Device Identifier Shelf Expiration Date Model / Serial / Lot Hemostatic Surgicel 2x14in 1950 - [id number] Implanted:Qty : 1 on 02/08/2018 by Xin Scott MD at [facility] Hemostatic Left: Axilla [employer]- [employer] [id number] 10/26/20211950 / / [id number] Hemostatic Surgicel 2x14in 1950 - [id number] Implanted:Qty : 1 on 02/25/2018 by Xin Scott MD at [facility] Hemostatic Left: Breast [employer] 06/25/20221950 / / [id number] Explanted Type Area Char Filter Operator Helper Device Identifier Shelf Expiration Date Model / Serial / Lot Port Pwrprt Clr Du 8fr Mri [id number] - [id number] Implanted:Qty : 1 on 03/27/2018 by Xin Scott MD at [facility] Explanted:Qty : 1 on 02/09/2020 by Xin Scott MD at [facility] Port Right: Chest CR BARD- [employer] [id number] 05/27/2019 [id number] / / [id number] Procedures Procedure Name Priority Date/Time Associated Diagnosis Comments MAMMO BILAT DIAGNOSTIC Routine 11:16 AM CDT MAMMO SCREENING BILAT Routine 04/18/2024 11:45 AM CENTERLESS GRINDER OPERATOR OCCULT BLOOD IMMUNOASSAY, COLORECTAL SCREEN Routine 04/02/2018 from Last 3 Months or Most Recently Relevant to Health Maintenance Results * MAMMO BILAT DIAGNOSTIC (05/07/2024 11:16 AM CDT) Anatomical Region Laterality Modality Breast Bilateral Mammography us Samir Sahu MD MAMMO ORDERABLES Final Result * MAMMO SCREENING BILAT (04/18/2024 11:45 AM CENTERLESS GRINDER OPERATOR) Anatomical Region Laterality Modality Breast Bilateral Mammography us Samir Sahu MD MAMMO ORDERABLES Final Result * OCCULT BLOOD IMMUNOASSAY, COLORECTAL SCREEN (04/02/2018) Stool STOOL SPECIMEN / Unknown us Abstract Provider BODY FLUIDS AND STOOLS Final R esult [facility] from Last 3 Months or Most Recently Relevant to Health Maintenance Insurance [facility] BLUE ACCESS CHOICE MEDICARE PART A AND B RX [employer] MEDICARE PART A AND B Advance Directives For more information, please contact: [phone] * Full Code (Latest Code Status on File) Date Activated Date Inactivated Comments 03/27/2018 6:52 AM 03/27/2018 11:34 AM * Full Code Date Activated Date Inactivated Comments 02/08/2018 2:30 PM 02/08/2018 8:51 PM
--- OUTSIDE RECORDS SUMMARY | 2024-05-22 10:58 | XMS_ITS | Clinical Summary ---
Author Organization [facility] [address] Address [address] [place] [address] Care Team Providers Care Global President Name Role Phone Sanford Jorge MD Primary Care Provider Allergies Active Allergy Reactions Criticality Noted Date Comments Amoxicillin Rash Medium 04/12/2011 Yeast infection specifically Yeast infection specifically Yeast infection specifically Yeast infection specifically Hydrocodone-Acetaminop hen Nausea & Vomiting,Nausea only Low 04/10/2014 Iodine Nausea & Vomiting,Nausea And Vomiting,Other (See comments),Rash,Short ness of breath,Vomiting High 08/06/2015 Hot, break-out, faint Hot, break-out, faint Lisinopril Cough Medium 05/18/2011 Flgbatz-Imu-Oqp Reductase Inhibitors Muscle pain Medium 10/10/2021 Medications fluticasone propion-salmeteroL (ADVAIR DISKUS) 250-50 mcg/dose diskus inhaler INHALE 1 PUFF INTO THE LUNGS TWICE A DAY 2 Active vitamin E acetate (VITAMIN E ORAL) Take by mouth Active VIT B COMP NO.0-NWSQD-P-BIOTI N ORAL Take by mouth Active rosuvastatin [...] on file Legal Sex Female 8:53 PM ULTRASOUND TECHNOLOGIST SONOGRAPHER Gender Identity Not on file Sexual Orientation Not on file Obstetrics History Last Filed Vital Signs Vital Sign Reading Time Taken Comments Blood Pressure 120/80 01/29/2024 12:25 PM ULTRASOUND TECHNOLOGIST SONOGRAPHER Pulse 80 01/29/2024 11:11 AM ULTRASOUND TECHNOLOGIST SONOGRAPHER Temperature - - Respiratory Rate - - Oxygen Saturation 96% 01/29/2024 11:11 AM ULTRASOUND TECHNOLOGIST SONOGRAPHER Inhaled Oxygen Concentration - - Weight 84.4 kg (186 lb) 01/29/2024 11:11 AM ULTRASOUND TECHNOLOGIST SONOGRAPHER Height 172.7 cm (5' 8 ) 01/29/2024 11:11 AM ULTRASOUND TECHNOLOGIST SONOGRAPHER Body Mass Index 28.28 01/29/2024 11:11 AM ULTRASOUND TECHNOLOGIST SONOGRAPHER Plan of Treatment Health Maintenance Due Date [...] 12/25/2023, , 12/16/2020, Additional history exists Insurance [employer] MEDICARE [facility] MEDICARE Care Teams Global President Relationship Specialty Start Date End Date Sanford Jorge MD [address] [place] [address] [place] [address] PCP - General Family Practice 10/06/21
--- OUTSIDE RECORDS SUMMARY | 2024-05-22 10:58 | XMS_ITS | Referral Summary ---
Author Organization [facility] [address] Address [address] [place] [address] Care Team Providers Care Extension Clerk Name Role Phone Sanford Jorge MD Primary Care Provider [phone] Allergies Active Allergy Reactions Criticality Noted Date Comments Amoxicillin Rash Medium 04/12/2011 Yeast infection specifically Yeast infection specifically Yeast infection specifically Yeast infection specifically Hydrocodone-Acetaminop hen Nausea & Vomiting,Nausea only Low 04/10/2014 Iodine Nausea & Vomiting,Nausea And Vomiting,Other (See comments),Rash,Short ness of breath,Vomiting High 08/06/2015 Hot, break-out, faint Hot, break-out, faint Lisinopril Cough Medium 05/18/2011 Wgxdbtj-Ifr-Ilb Reductase Inhibitors Muscle pain Medium 10/10/2021 Medications fluticasone propion-salmeteroL (ADVAIR DISKUS) 250-50 mcg/dose diskus inhaler INHALE 1 PUFF INTO THE LUNGS TWICE A DAY 2 Active vitamin E acetate (VITAMIN E ORAL) Take by mouth Active VIT B COMP NO.8-NHVOR-U-BIOTI N ORAL Take by mouth Active rosuvastatin [...] on file Legal Sex Female 8:53 PM COMMERCIAL FISHER Gender Identity Not on file Sexual Orientation Not on file Last Filed Vital Signs Vital Sign Reading Time Taken Comments Blood Pressure 120/80 01/29/2024 12:25 PM COMMERCIAL FISHER Pulse 80 01/29/2024 11:11 AM COMMERCIAL FISHER Temperature - - Respiratory Rate - - Oxygen Saturation 96% 01/29/2024 11:11 AM COMMERCIAL FISHER Inhaled Oxygen Concentration - - Weight 84.4 kg (186 lb) 01/29/2024 11:11 AM COMMERCIAL FISHER Height 172.7 cm (5' 8 ) 01/29/2024 11:11 AM COMMERCIAL FISHER Body Mass Index 28.28 01/29/2024 11:11 AM COMMERCIAL FISHER Plan of Treatment Not on file Insurance ANTHEM ACCESS Member Subscriber Plan / Payer (Ef fective 2019-Present) Name:Colleen Sheth Relation to Subscriber:Self Name:Colleen Sheth Payer ID:[id number] (NAIC) Type:[facility] Address: [address] [place] [id number] MEDICARE ANTHEM ACCESS MEDICARE Care Teams Extension Clerk Relationship Specialty Start Date End Date Sanfrod Jorge MD [address] [place] [address] [place] [id number] PCP - General Family Practice 10/06/21
--- OUTSIDE RECORDS SUMMARY | 2024-05-22 10:58 | XMS_ITS | Continuity of Care Document ---
Author Organization [facility] Address [address] [place] [address] Phone Care Team Providers Care Manager Stars Name Role Phone Administrative, Provider Unavailable Unavail able Procedures Procedure Date Medical Record Copy Medical Record Copy Per Page Affidavit Advance Directives Directive Yes / No Effective Date File Name No Information Encounters Encounter Description Practice Location Reason(s) For Visit Diagnoses Date Provider Providers Copied on Encounter [facility], [address] [place], [place] [address] [place], [place], [id number], [place] tel:[phone] [facility] No Information 2200 7 Administrative Provider. [address] [place] [address], [place] [address], [place], [place], [id number], . tel:[phone] Family History Family Member Type Diagnosis Age [...]
--- OUTSIDE RECORDS SUMMARY | 2024-05-22 10:58 | XMS_ITS ---
Author Organization [facility] Address [address] [place] [address] Phone Care Team Providers Care Transliterator Name Role Phone Unavailable Primary Care Provider Unavailabl e Active Problems Patient Care Coordination No te Formatting of this note migh t be different from the original. Primary Care: Sanford Jorge MD Referring Provider: Sanford Jorge MD [address] [place] [phone] Other: Dr. Xin Scott MD Problem Noted [...] Breast Cancer Survivorship Care Plan Provided by [facility] on 01/21/19 General Information Patient Name: Colleen Sheth Patient : 1960 Care Team Medical Oncologist: Samir Darby Syed M, MD Surgeon: Xin Scott [phone] Primary Care Physician: Dr. Sanford Jorge Nurse [...] IV Estrogen Receptor: Positive Progesterone Receptor: Positive Lfg7Umr: Positive Treatment Summary Surgery Left lumpectomy and [...] Functioning Resources Provided to Patient Referrals Provided: [facility] Follow-up and Survivorship Care [...] for a mammogram. Medical Oncologist, Surgeon, and OB/Hardware Trainer Pelvic examination Continue to visit a caramel cutter machine regularly OB/Hardware Trainer Bone Density Baseline prior to Anastrozole, Letrozole, [...] [place] organizations Cancer Support Community of [facility] cancer community office which include support groups (including a survivorship group), mentoring, exercise and yoga classes among other ways to get involved and connect with fellow survivors as well as resources for families and caregivers. Website: http://www.cancersupportstl.org/ Livestrong at the [facility] A physical activity and wellness program designed for cancer survivors to help achieve well-being. Contact your local [facility] to get started. The program is free to join and lasts for 12 weeks. Visit the website to see a list of participating locations. Website: https://www.[facility].org/program/livestrong Cancer Information Center at [facility]???s Omer Rehman [facility] Call or drop by to speak with a social work administrator or nurse navigator for questions about financial/food/housing assistance, counseling services, resources for wigs, riveter pneumatic referral and general questions about diagnosis, treatment and survivorship. There is also a survivorship monthly support group that meets at [place]. Call for more information. Website for special events/classes: https://www.[facility]/practice/reva-cancer-center/cance b-uvglmgvc-wex-special-events/ National nonprofit organizations Australian Cancer Society/National Cancer Information Center [facility] provides cancer information and support to patients, families, and caregivers. It also supportsresearch, community, education, and advocacy and public policy issues Phone: 5-822-GBD-9238 ( ) Website: www.cancer.org CancerCare Provides free, professional support services to anyone affected by cancer. CancerCare programs include counseling, education, financial assistance and practical help by trained oncology social workers and are free of charge. Phone: 7-388-387-HOPE ( ) Website: www.cancercare.org Cancer Hope Network Cancer Hope Network matches patients and families with trained volunteers who have recovered from asimilar cancer experience. Phone: 5-088-LJOSHHY ( ) Website: www.cancerhopenetwork.org Cancer Support Community Cancer support community is a national organization that provides support groups, stress reduction and cancer education workshops, nutrition guidance, exercise sessions and social events. Phone: 9-330-708-M-Dot Network ( ) Website: www.cancersupportcommunity.org National Coalition for Cancer Survivorship NCCS provides information and resources on cancer support, advocacy, and xvsmcqt-lr-avah issues to cancer survivors and loved ones. Phone: 7-195-RPQN-YES ( ) Website: www.canceradvocacy.org Patient Advocate Foundation [facility] provides education, legal counseling, and referrals to [...]
--- OUTSIDE RECORDS SUMMARY | 2024-05-22 10:58 | XMS_ITS | Encounter Summary ---
Author Organization [facility] Address [address] [place] [address] Care Team Providers Care Band Cutter Name Role Phone Sanford Jorge MD Primary Care Provider [phone] Encounter Details Date Type Department Care Team (Late st Contact Info) Description 03/19/2018 Chart Note Omer Bermudez [facility] Radiation Therapy [address] [place] [address] [place] [address] [place] [address] Social History Tobacco Use Types Packs/Day Years Used Date Smoking Tobacco: Never Smokeless Tobacco: Never Alcohol Use Standard Drinks/Week Comments No 0 (1 standard drink = 0.6 oz pur e alcohol) Comments No Sex and Gender Information Value Date Recorded Sex Assigned at Not on file Legal Sex Female 3:02 PM SHIPYARD LABORER Gender Identity Not on file Sexual Orientation Not on file documented as of this encounter Plan of Treatment Upcoming Encounters Date Type Department Care Team (Late st Contact Info) Description 06/02/2024 10:00 AM CDT Office Visit [facility] Oncology and Hematology - [address] [facility] [address] [place] [address] Samir Sahu MD [address] [facility] [address] [place] [address] documented as of this encounter Visit Diagnoses Not on filedocumented in this encounter Care Teams Band Cutter Relationship Specialty Start Date End Date Sanford Jorge MD [address] [place] [address] [place] [address] PCP - General Family Practice 01/11/18 11/29/23 documented as of this encounter
[2024-05-22 11:59] LABS: Alanine Aminotransferase 21 U/L (6-35); Albumin Level 4.4 g/dL (3.5-5.1); Alkaline Phosphatase 75 U/L (38-126); Anion Gap 13 mmol/L (4-12); Aspartate Amino Transferase 26 U/L (14-36); Bilirubin,Total 0.4 mg/dL (0.2-1.3); Blood Urea Nitrogen 27 mg/dL (7-17); Calcium 9.4 mg/dL (8.4-10.2); Carbon Dioxide 25 mmol/L (22-30); Chloride 102 mmol/L (98-107); Estimated Glomerular Filt Rate > 60; Glucose 92 mg/dL (65-110); Potassium 4.1 mmol/L (3.4-5.0); Sodium 140 mmol/L (137-145)
[2024-05-24 01:28] LABS: CA 15-3 16 U/mL (<32)
== END 2024-05-22 10:00 | disposition home or self-care (01) ==
LOC: ANHLAB 10:00
PROVIDERS: Visit Provider Internal Medicine Hematology & Oncology
DX: C50.412 Malignant neoplasm of upper-outer quadrant of left female breast (principal); Z17.0 Estrogen receptor positive status [ER+]
CPT/HCPCS: 36415; 80053; 85025; 86300

== ENCOUNTER 2024-11-26 11:40 | Outpatient (CLI) | payer MEDICARE, BC, SELFPAY ==
--- OUTSIDE RECORDS SUMMARY | 2006-05-17 09:31 | XMS_ITS | Continuity of Care Document ---
Author Organization [facility] Address [address] [place] [address] Phone Care Team Providers Care Veterans Contact Representative Name Role Phone Administrative, Provider Unavailable Unavail able Procedures Procedure Date Medical Record Copy Medical Record Copy Per Page Affidavit Advance Directives Directive Yes / No Effective Date File Name No Information Encounters Encounter Description Practice Location Reason(s) For Visit Diagnoses Date Provider Providers Copied on Encounter [facility], [address] [place], [place] [address], [place], [place], [id number], [place] tel:[phone] [facility] No Information 2200 7 Administrative Provider. [address] [place] [address], [place] [address], [place], [id number], . tel:[phone] Family History Family Member Type Diagnosis Age At Onset No Information Payers Payer name Insurance type Covered libertarian ID Authoriza tion(s) No Information Social History Type Description Quantity Date Captured Comments Sex Female Smoking Status No Information Chief Complaint And Reason For Visit No Information Reason For Referral Reason For Referral No Information History Of Present Illness Encounter Date Complaint History Of Prese nt Illness No Information Functional Status Date Functional Assessmen t No Information Instructions Date Instruction Additional Infor mation No Information Assessments Type Assessment Date No Information Patient Care Teams Name Effective Dates (start - stop) Status Members No Information
[2024-11-26 11:53] LABS: Hematocrit 39.0 % (37.0-47.0); Hemoglobin 13.1 g/dL (12.0-15.0); Immature Granulocyte Percent A 0.2 % (0-0.5); Lymphocytes Absolute Auto 1.11 K/mm3 (0.9-3.2); Mean Corpuscular HGB Conc 33.6 g/dl (32-36); Mean Corpuscular Hemoglobin 32.4 pg (26-34); Mean Corpuscular Volume 96.5 fl (80-100); Nucleated Red Blood Cells Absolute Auto 0.000 K/mm3 (0.0-0.012); Nucleated Red Blood Cells Perc 0.0 % (0.0-0.2); Platelet Count Result 246 k/mm3 (150-375); Red Blood Count 4.04 M/mm3 (4.2-5.4); White Blood Count 4.2 K/mm3 (4.5-10.0)
--- OUTSIDE RECORDS SUMMARY | 2024-11-26 12:13 | XMS_ITS | Encounter Summary ---
Author Organization [facility] Address [address] [place] [address] Care Team Providers Care Racetrack Steward Name Role Phone Jun Payton MD Unavailable [phone] Zenaida Maldonado MD Primary Care Pr ovider Unavailable KINJAL Hendricks Angela Primary Care Provider Encounter Details Date Type Department Care Team (Late st Contact Info) Description 01/11/2022 [employer] Message Enc [facility] Medical Group Multispecialty Care - [address] [place] [address] [employer] [facility], [facility] Provider Appt Social History Tobacco Use Types Packs/Day Years Used Date Smoking Tobacco: Never Smokeless Tobacco: Never Comments:PCP to social services counselor. 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 Not on file Not on file documented as of this encounter Plan of Treatment Not on file documented as of this encounter Visit Diagnoses Not on filedocumented in this encounter Additional Health Concerns Infection Onset Date Last Indicated Resolved Time COVID-19 Rule Out 02/13/2022 02/13/2022 02/13/2022 9:46 AM FISH BAIT PROCESSING SUPERVISOR COVID-19 Rule Out 02/13/2022 02/13/2022 02/14/2022 8:00 PM FISH BAIT PROCESSING SUPERVISOR COVID-19 Rule Out 12/08/2022 12/08/2022 12/08/2022 2:40 PM CDT COVID-19 Rule Out 10/30/2023 10/30/2023 10/30/2023 12:11 PM CDT MRSA 08/14/2024 08/14/2024 Assessment Noted Time PHQ-9 Depression Total Score: 12 022 10:54 AM FISH BAIT PROCESSING SUPERVISOR documented as of this encounter Care Teams Racetrack Steward Relationship Specialty Start Date End Date Zenaida Maldonado MD Three [facility]. [address] [address] PCP - General FAMILY PRACTICE 10/28/19 06/15/22 Rossana Lu V, [facility]- [address] [place] [address] [place] [address] PCP - General Nurse Practitioner Family 06/16/22 Jun Payton MD Three [facility]. [facility] [address] [place] [address] [place] Community Ambassador CARDIOVASCULAR DISEASE 07/28/15 documented as of this encounter
--- OUTSIDE RECORDS SUMMARY | 2024-11-26 12:13 | XMS_ITS | Encounter Summary ---
Author Organization [facility] Address [address] [place] [address] Care Team Providers Care Machine Scallop Cutter Name Role Phone Sanford Jorge MD Primary Care Provider [phone] Encounter Details Date Type Department Care Team (Late st Contact Info) Description 03/19/2018 Chart Note Omer Bermudez [facility] Radiation Therapy [address] [place] [address] [place] [address] [place] [address] Social History Tobacco Use Types Packs/Day Years Used Date Smoking Tobacco: Never Smokeless Tobacco: Never Alcohol Use Standard Drinks/Week Comments No 0 (1 standard drink = 0.6 oz pur e alcohol) Comments No Sex and Gender Information Value Date Recorded Sex Assigned at Not on file Legal Sex Female 3:02 PM EXTRACTOR 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 Gender Identity Not on file Sexual Orientation Not on file documented as of this encounter Plan of Treatment Upcoming Encounters Date Type Department Care Team (Late st Contact Info) Description 12/04/2024 10:15 AM CDT Office Visit [facility] Oncology and Hematology - [address] [facility] [address] [place] [address] Samir Sahu MD [address] [facility] [address] [place] [address] documented as of this encounter Visit Diagnoses Not on filedocumented in this encounter Care Teams Machine Scallop Cutter Relationship Specialty Start Date End Date Sanford Jorge MD [address] [place] [address] [place] [phone] PCP - General Family Practice 01/11/18 11/29/23 documented as of this encounter
--- OUTSIDE RECORDS SUMMARY | 2024-11-26 12:13 | XMS_ITS | Encounter Summary ---
Author Organization [facility] Address [address] [place] [address] Care Team Providers Care Locker Plant Attendant Name Role Phone Jun Payton MD Unavailable [phone] KINJAL Hendricks Angela Primary Care Provider Encounter Details Date Type Department Care Team (Late st Contact Info) Description 08/23/2022 [employer] Message Enc [facility] - [facility] [address] [place] [address] [employer], [facility] Provider Air Quality Message Social History Tobacco Use Types Packs/Day Years Used Date Smoking Tobacco: Never Smokeless Tobacco: Never Comments:PCP to pastoral counselor. 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
--- OUTSIDE RECORDS SUMMARY | 2024-11-26 12:13 | XMS_ITS | Encounter Summary ---
Author Organization [facility] Address [address] [place] [address] Care Team Providers Care Police Service Technician Name Role Phone Jaylen Kiara Parkinson DO Primary Care Provider [phone] Sil De La Rosa MD, Robert Unavailable [phone] Jenny Yeager ANP-BC Unavailable [phone] Jun Payton MD Unavailable Genevieve Cai ART HISTORY INSTRUCTOR Primary Care Provider Unav ailable DevaseZenaida wetzel MD Primary Care Pr ovider Unavailable OLGA Hendricks-Rossana CORBETT Primary Care Provider Encounter Details Date Type Department Care Team (Late st Contact Info) Description 09/15/2014 Abstract [facility] CONVERSION [address] [place] [address] , Generic Conversion, Social History Tobacco Use Types Packs/Day Years Used Date Smoking Tobacco: Never Comments Unknown Sex and Gender Information Value Date Recorded Sex Assigned at Female 04/11/2024 2:48 PM FIRE RANGE TECHNICIAN Legal Sex Female 9:56 PM CDT Gender Identity Female 09/25/2024 3:21 PM CDT Sexual Orientation Not on file documented as of this encounter Plan of Treatment Not on file documented as of this encounter Visit Diagnoses Not on filedocumented in this encounter Additional Health Concerns Infection Onset Date Last Indicated Resolved Time COVID-19 Rule Out 01/12/2021 01/12/2021 01/12/2021 8:33 PM FIRE RANGE TECHNICIAN COVID-19 Rule Out 03/03/2021 03/03/2021 03/03/2021 2:47 PM FIRE RANGE TECHNICIAN COVID-19 Rule Out 03/04/2021 03/04/2021 03/05/2021 4:56 AM FIRE RANGE TECHNICIAN COVID-19 Rule Out 04/29/2021 04/29/2021 04/29/2021 11:42 AM FIRE RANGE TECHNICIAN COVID-19 Rule Out 04/29/2021 04/29/2021 04/29/2021 9:51 PM FIRE RANGE TECHNICIAN COVID-19 Rule Out 02/13/2022 02/13/2022 02/13/2022 9:46 AM FIRE RANGE TECHNICIAN COVID-19 Rule Out 02/13/2022 02/13/2022 02/14/2022 8:00 PM FIRE RANGE TECHNICIAN COVID-19 Rule Out 12/08/2022 12/08/2022 12/08/2022 2:40 PM CDT COVID-19 Rule Out 10/30/2023 10/30/2023 10/30/2023 12:11 PM CDT MRSA 08/14/2024 08/14/2024 documented as of this encounter Care Teams Police Service Technician Relationship Specialty Start Date End Date Kiara York DO [address] [place] [address] PCP - General FAMILY PRACTICE 10/16/16 03/17/18 Genevieve Cai FNP [address] [facility] [address] [place] [address] PCP - General FAMILY PRACTICE 03/18/18 10/27/19 Zenaida Maldonado MD Three [facility]. [address] [place] [address] PCP - General FAMILY PRACTICE 10/28/19 06/15/22 Rossana Lu FNP- [address] [place] [address] PCP - General Nurse Practitioner Family 06/16/22 Seng Mujica MD [address] [place] [address] [place] [id number] [employer] Retail Analytics Manager CARDIOVASCULAR DISEASE 07/28/15 10/27/16 Jenny Yeager [facility]- [address] [place] [address] [address] [place] [address] NURSE PRACTITIONER 10/16/16 10/27/16 Jun Payton MD [facility] [address] [place] [address] [place] Retail Analytics Manager CARDIOVASCULAR DISEASE 07/28/15 documented as of this encounter
--- OUTSIDE RECORDS SUMMARY | 2024-11-26 12:13 | XMS_ITS | Clinical Summary ---
Author Organization [facility] [address] Address [address] [place] [address] Care Team Providers Care Petroleum Refining Firer Name Role Phone Sanford Jorge MD Primary Care Provider [phone] Allergies Active Allergy Reactions Criticality Noted Date Comments Amoxicillin Rash Medium 04/12/2011 Yeast infection specifically Yeast infection specifically Yeast infection specifically Yeast infection specifically Hydrocodone-Acetaminop hen Nausea & Vomiting,Nausea only Low 04/10/2014 Iodine Nausea & Vomiting,Nausea And Vomiting,Other (See comments),Rash,Short ness of breath,Vomiting High 08/06/2015 Hot, break-out, faint Hot, break-out, faint Lisinopril Cough Medium 05/18/2011 Labgvjo-Xuv-Zgv Reductase Inhibitors Muscle pain Medium 10/10/2021 Medications fluticasone propion-salmeteroL (ADVAIR DISKUS) 250-50 mcg/dose diskus inhaler INHALE 1 PUFF INTO THE LUNGS TWICE A DAY 2 Active vitamin E acetate (VITAMIN E ORAL) Take by mouth Active VIT B COMP NO.1-CNIGO-V-BIOTI N ORAL Take by mouth Active rosuvastatin [...] mg total) by mouth daily 3 Active ezetimibe (ZETIA) 10 mg tablet Take 1 tablet (10 mg total) by mouth daily 90 tablet 3 4 Active losartan (COZAAR) 50 mg tabletIndications: Essential hypertension Take 1 tablet (50 mg total) by mouth daily 90 tablet 3 5 026 Active amLODIPine (NORVASC) 5 mg tabletIndications: hypertension Take 1 tablet (5 mg total) by mouth daily 90 tablet 3 5 026 Active Active Problems Problem Noted Date Diagnosed Date Statin intolerance 01/23/2023 Tricuspid valve insufficiency 10/10/2021 Essential hypertension 10/10/2021 Mixed hyperlipidemia 10/10/2021 Other chest pain 10/10/2021 Palpitations 10/10/2021 Vasovagal syncope 10/10/2021 Dizziness 10/10/2021 Malignant neoplasm of female breast 10/10/2021 Pain of left lower extremity 10/10/2021 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 Aortic atherosclerosis 10/10/2021 Encounters Date Type Department Care Team Description 09/10/2024 Results Follow-Up [facility] Cardiology [address] [place] [address] [place] [address] Braden Jaimes MD Basic metabolic panel 09/03/2024 Telephone [facility] Cardiology [address] [place] [address] Braden Jaimes MD from Last 3 Months Surgical History Surgery [...] on file Legal Sex Female 8:53 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 Gender Identity Not on file Sexual Orientation Not on file Obstetrics History Last Filed Vital Signs Vital Sign Reading Time Taken Comments Blood Pressure 154/96 08/08/2024 9:55 AM CDT Pulse 69 08/08/2024 9:55 AM CDT Temperature - - Respiratory Rate - - Oxygen Saturation 98% 08/08/2024 9:55 AM CDT Inhaled Oxygen Concentration - - Weight 86.6 kg (191 lb) 08/08/2024 9:55 AM CDT Height 172.7 cm (5' 8) 08/08/2024 9:55 AM CDT Body Mass Index 29.04 08/08/2024 9:55 AM CDT Plan of Treatment Health Maintenance Due Date Last Done Comments Breast Cancer Screening-Mammogram 1960 Colon Cancer Screening-Colonoscopy 1960 Depression Screening 1960 Hepatitis C Screening 1960 Regular Well Visit/Exam 18-64 1979 Pneumococcal vaccine <65 (1 of 2 - PCV) 1980 Zoster Vaccine (1 of 2) 1980 Covid-19 Vaccine ( - 2024-2 6 season) 2024 02/04/2021, 05/10/2020, 04/03/2020 Influenza Vaccine (#1) 2024 , 12/22/2022, 12/16/2020, Additional history exists DTaP/Tdap/Td Vaccine (4 - Td or Tdap) 05/03/2033 05/04/2023, 09/21/2014, 08/24/2006, Additional history exists Hepatitis B Screening Completed 08/24/2005 , 03/18/1998, 02/05/1998 Procedures Procedure Name Priority Date/Time Associated Diagnosis Comments BASIC METABOLIC PANEL Routine 09/05/2024 Essential hypertension from Last 3 Months Results * (ABNORMAL) Basic metabolic panel (09/05/2024) SCRIBED Sodium 139 136 - 145 mmol/L EXTERNAL LAB SCRIBED Potassium 4.1 3.5 - 5.1 mmol/L EXTERNAL LAB SCRIBED Chloride 104 100 - 108 mmol/L EXTERNAL LAB SCRIBED Carbon Dioxide 32.3(A) 21 - 32 mmol/L EXTERNAL LAB SCRIBED Anion Gap 2.7(A) 5.0 - 15.0 mmol/L EXTERNAL LAB SCRIBED Urea Nitrogen (BUN) 10 7 - 18 mg/dl EXTERNAL LAB SCRIBED Creatinine 0.81 0.50 - 1.20 mg/dl EXTERNAL LAB SCRIBED Glucose 95 70 - 99 mg/dl EXTERNAL LAB SCRIBED Calcium 8.8 8.5 - 10.1 mg/dl EXTERNAL LAB SCRIBED eGFR N/A N/A EXTERNAL LAB SCRIBED eGFR 82 > or = 90 EXTERNAL LAB Blood 09/05/2024 Braden Jaimes MD LAB BLOOD ORDERABLES [facility] Result EXTERNAL LAB from Last 3 Months Insurance ANTH ACCESS MEDICARE [facility] MEDICARE Care Teams Petroleum Refining Firer Relationship Specialty Start Date End Date Sanford Jorge MD [address] [place] [address] [place] [address] PCP - General Family Practice 10/06/21
--- OUTSIDE RECORDS SUMMARY | 2024-11-26 12:13 | XMS_ITS | Clinical Summary ---
Author Organization [facility] Address [address] [place] [address] Care Team Providers Care Self Defense Instructor Name Role Phone Jun Payton MD Unavailable [phone] KINJAL Hendricks Angela Primary Care Provider [...] (eight) hours as needed. 03/27/19 19 Active IPRATROPIUM-ALBU TEROL 0.5-2.5 (3) MG/3ML SolutionIndicati ons:Acute bronchitis, unspecified organism USE 1 VIAL BY NEBULIZER EVERY 6 (SIX) HOURS NEEDED. 360 mL 09/10/19 19 Active Cyanocobalamin (B-12) 2000 MCG Tab Active Multiple Vitamin (MULTI-VITAMIN) tablet Active Magnesium 500 MG CapIndications:q d Take by mouth daily. Indications: qd Active anastrozole 1 MG tablet TAKE 1 TABLET BY MOUTH DAILY 10/06/19 20 Active ezetimibe (ZETIA) 10 MG tablet Take 1 tablet (10 mg total) by mouth daily. 01/24/20 23 Active aspirin EC (ECOTRIN) 81 MG tablet Take 1 tablet (81 mg total) by mouth daily. 01/24/20 23 Active losartan (COZAAR) 25 MG tabletIndication s:Essential hypertension TAKE 1 TABLET (25 MG TOTAL) BY MOUTH DAILY. 30 tablet 08/29/19 25 Active Cholecalciferol (TRUE VITAMIN D3) 125 MCG (5000 UT) CapIndications:H istory of vitamin D deficiency TAKE 1 CAPSULE BY MOUTH EVERY DAY 90 capsule 3 09/25/19 25 Active WEGOVY 0.25 mg/dose injection (PEN) Inject 0.25 mg into the skin once a week. 09/10/19 25 Active amLODIPine (NORVASC) 5 MG tablet Take 1 tablet (5 mg total) by mouth daily. 08/09/19 25 026 Active venlafaxine (EFFEXOR) 37.5 MG tablet Take 1 tablet (37.5 mg total) by mouth 2 (two) times daily. Active Albuterol-Budeso nide (AIRSUPRA) 90-80 MCG/ACT AerosolIndicatio ns:Mild intermittent asthma without complication (HHS/HCC) Inhale 2 puffs into the lungs every 4 (four) hours as needed. 10.7 g 2 09/26/19 25 Active lansoprazole (PREVACID) 30 MG capsuleIndicatio ns:Chambers's esophagus without dysplasia TAKE 1 CAPSULE BY MOUTH EVERY DAY 90 capsule 3 11/21/19 25 Active lansoprazole (PREVACID) 30 MG capsuleIndicatio ns:Chambers's esophagus without dysplasia TAKE 1 CAPSULE BY MOUTH EVERY DAY 90 capsule 3 02/08/20 24 025 Discontinued Active Problems Problem Noted Date Diagnosed Date Controlled substance agreement signed 04/11/2024 Overview (04/11/2024): Last 04/11/24 - phentermine History of anemia 04/27/2023 History of breast cancer 04/27/2023 Chronic heart failure with p reserved ejection fraction (CMS/HCC HHS/HCC) 06/09/2022 History of vitamin D deficiency 06/09/2022 Subclinical hypothyroidism 06/09/2022 Overweight (BMI 25.0-29.9) 06/09/2022 Hyperlipidemia, unspecified hyperlipidemia type 06/09/2022 CKD (chronic kidney disease) stage 2, GFR 60-89 ml/min 06/09/2022 Prediabetes 06/09/2022 Aortic atherosclerosis 06/09/2022 Nonrheumatic tricuspid valve [...] ductal carcinoma of breast, stage 2, left (CMS/HCC HHS/HCC) 02/15/2018 Overview (03/31/2020): Stage IIb disease ER MA positive HER2/jamin positive High-grade DCIS of left [...] 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 ([facility]/HCC [facility]/HCC) 03/15/2018 04/27/2023 Hypothyroidism, acquired 03/27/201602/2023 Overview (01/08/2018): Date Onset: 03/27/2016 Metabolic syndrome 01/05/2016 4 Overview (01/08/2018): Date Onset: 01/05/2016 Encounters Date Type Department Care Team Description 11/06/2024 8:01 PM CDT - 11/06/2024 11:59 PM CDT Hospital Encounter [facility] [address] [place] [address] Chelita Freeman NP Obstructive Sleep Apnea Discharge Disposition: Home or Self Care (Routine Discharge) 11/06/2024 Travel 10/17/2024 Transcribe Orders [facility] [address] [place] [address] Chelita Freeman NP 10/15/2024 Scan [employer] INFO SRVCS Scanned, [facility] 10/03/2024 Results Follow-Up [facility] [address] [place] [address] Tonya Chow V, CONTRACT ASSOCIATE MANAGER-BC CT BONE DENSITY AXIAL 10/01/2024 4:27 PM CDT - 10/01/2024 11:59 PM CDT Hospital Encounter [facility] CT [address] [place] [address] Tonya Chow V, CONTRACT ASSOCIATE MANAGER-BC Discharge Disposition: Home or Self Care (Routine Discharge) 10/01/2024 Travel 09/26/2024 9:56 AM CDT - 09/26/2024 11:59 PM CDT Hospital Encounter [facility] [address] [place] [address] Tonya Chow V, CONTRACT ASSOCIATE MANAGER-BC Discharge Disposition: Home or Self Care (Routine Discharge) 09/25/2024 4:12 PM CDT - 09/25/2024 11:59 PM CDT Hospital Encounter [facility] [address] [place] [address] Tonya Chow V, CONTRACT ASSOCIATE MANAGER-BC Discharge Disposition: Home or Self Care (Routine Discharge) 09/25/2024 3:20 PM CDT Office Visit [facility] [address] [place] [address] Tonya Chow V, CONTRACT ASSOCIATE MANAGER-BC Medication Management (Pt is here for a medication management f/u, Pt states she is doing well but thinks she is getting a UTI) 09/25/2024 Results Follow-Up [facility] [address] [place] [address] Tonya Chow V, [facility]- URINALYSIS AUTO DIP, URINE BACTERIA CULTURE, CBC W/DIFF AUTOMATED, Additional followed-up results: 5 09/25/2024 Travel 09/05/2024 10:11 AM CDT - 09/05/2024 11:59 PM CDT Hospital Encounter [facility] [address] [place] [address] Braden Jaimes MD Discharge Disposition: Home or Self Care (Routine Discharge) 09/05/2024 Orders Only [facility] [address] [place] [address] Braden Jaimes MD 09/05/2024 Travel from Last 3 Months Immunizations Immunization Administration Dates Next Due Fluzone (IIV3, Trivalent, [...] Never Tobacco Cessation:Counseling Given: No Comments:PCP to residential substance abuse counselor. 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 Not on file Not on file Last Filed Vital Signs Vital Sign Reading Time Taken Comments Blood Pressure 114/82 09/25/2024 3:21 PM CDT Pulse 90 09/25/2024 3:21 PM CDT Temperature 37.2 C (98.9 F) 09/25/2024 3:21 PM CDT Respiratory Rate 16 09/25/2024 3:21 PM CDT Oxygen Saturation 97% 09/25/2024 3:21 PM CDT Inhaled Oxygen Concentration - - Weight 85.3 kg (188 lb) 09/25/2024 3:21 PM CDT Height 172.7 cm (5' 8) 09/25/2024 3:21 PM CDT Body Mass Index 28.59 09/25/2024 3:21 PM CDT Plan of Treatment Health Maintenance Due Date Last Done Comments EGD-Chambers's Surveillance 1960 Annual Physical 1964 Pneumococcal Vaccine: 50+ Years (1 of 2 - PCV) 1980 Zoster Vaccines (1 of 2) 2011 RSV Immunization or 60+ Years (1 - Risk 60-74 years 1-dose series) 2021 COVID-19 Vaccine ( - season) 2024 02/04/2021, 05/10/2020, 04/03/2020 Mammogram Screening 05/07/2026 05/07/2024, 04/18/2024, 03/20/2022, Additional history exists Colorectal Cancer Screening Colonoscopy (10 Years) 06/29/2031 06/28/2021, 07/27/2011 DTaP, Tdap and Td Vaccines (8 - Td or Tdap) 05/03/2033 05/04/2023, 09/21/2014, 09/21/2014, Additional history exists Hepatitis C Completed 06/09/2022 PHQ-2 (Physician [place]) Completed 09/25/2024 Meningococcal B Vaccine Aged Out No l onger eligible based on patient's age to complete this topic Meningococcal Vaccine Aged Out No sidney alma eligible based on patient's age to complete this topic RSV Immunizations Under 20 Months Aged Out No longer eligible based on patient's age to complete this topic Procedures Procedure Name Priority Date/Time Associated Diagnosis Comments POLYSOMNOGRAPHY 4 OR MORE PARAMETERS Routine 11/06/2024 8:30 PM CDT QUEENIE (obstructive sleep apnea) CT BONE DENSITY AXIAL Routine 10/01/2024 4:58 PM CDT Post-menopausal VITAMIN B12 / FOLATE Routine 09/26/2024 10:00 AM CDT Neuropathy VITAMIN D, 25 OH Routine 09/26/2024 10:0 0 AM CDT Insomnia, unspecified type THYROID STIM HORMONE TSH Routine 09/26/2024 10:00 AM CDT Anxiety disorder, unspecified type Subclinical hypothyroidism Insomnia, unspecified type LIPID PANEL Routine 09/26/2024 10:00 AM CDT Hyperlipidemia, unspecified hyperlipidemia type HEMOGLOBIN, GLYCOSYLATED Routine 09/26/2024 10:00 AM CDT Prediabetes CBC W/DIFF AUTOMATED Routine 09/26/2024 10:00 AM CDT Insomnia, unspecified type URINE BACTERIA CULTURE Routine 3:51 PM CDT Burning with urination URINALYSIS AUTO DIP Today 09/25/2024 Burning with urination BASIC METABOLIC PANEL Routine 09/05/2024 10:15 AM CDT Essential hypertension MAMMOGRAM GENERIC (SCAN ORDER) 05/07/2024 HEPATITIS C ANTIBODY Routine 06/09/2022 9:45 AM CDT Need for hepatitis C screening test COLONOSCOPY GENERIC (SCAN ORDER) Routine 07/27/2011 12:00 AM CDT from Last 3 Months or Most Recently Relevant to Health Maintenance Results * Diagnostic PSG (39329, [id number]) (11/06/2024 8:30 PM CDT) Narrative [facility] - 11/06/2024 8:30 PM CDT Lefty Zapien MD 11/19/2024 10:51 AM [place], [place] DIAGNOSTIC NOCTURNAL POLYSOMNOGRAM INTERPRETATION PATIENT NAME: COLLEEN LUJAN DATE OF : 1960 DATE OF SERVICE: 11/06/2024 PATIENT TYPE: CLI Ordering Phy Exam Description Chelita BARTON PSG 4+PARAMETERS ATTENDING PHYSICIAN: Lefty Zapien MD REFERRING PHYSICIAN: Chelita BARTON GENERAL INFORMATION Total Sleep Time: 398.0 minutes Sleep Efficiency Index: 84.3% Sleep Latency: 24.3 minutes REM Latency: 352.5 minutes Respiratory Disturbance Index: 28.0 per hour Apnea-Hypopnea Index: 7.4 per hour Procedure: The overnight polysomnogram was an attended study using a multiple channel system including simultaneous monitoring and recording of electroencephalography (EEG), right and left electrooculography (EOC), submental electromyography (EOG), submental electromyography (EMG), EKG, oral/nasal airflow, snoring, respiratory effort, oxygen saturations, right and left anterior tibialis electromyography, and body position. Sleep Architecture: The patient underwent sleep testing and slept for a total of 398.0 minutes during 471.9 minutes of recording time. Latency to persistent sleep was 24.3 minutes with sleep efficiency of 84.3% and a REM latency of 352.5 minutes. Patient spent 14.3% (57.0 minutes) in stage N1, 68.5% (272.5 minutes) in stage N2, 8.3% (33.0 minutes) in Stage N3, 8.9% (35.5 minutes) in REM. The patient slept 51.1% of the time in supine position, 0.0% of the time in prone position, 16.7% of the time in left-sided position, and 32.2% of the time in right-sided position. There were 244 arousals, of which 166 were associated with respiratory events and 39 were spontaneous. Arousal index was 36.8 per hour. Limb Activity Summary: The patient demonstrated a total of 107 leg movements during the night, of which 107 had the appearance of periodic limb movements. There were a total of 62 arousals associated with leg movements for an arousal index with leg movements of 9.3 per hour. The periodic limb movement index was 16.1 per hour. Cardiac Events Summary: The average heart rate was 64.6 beats per minute. Respiratory Events Summary: There were a total of 51 apneas and hypopneas, of which 2 were apneas. Of those apneas, 2 were Obstructive, - were Central and - were Mixed. There were an additional 144 respiratory event-related arousals. The overall AHI was 7.4 per hour and the overall RDI was 28.0 per hour. During non-supine sleep, the overall AHI was 2.2 per hour. During supine sleep, the overall AHI was 12.4 per hour. NREM AHI was 4.6 per hour and REM AHI was 35.5 per hour. Oxygen Saturation Summary: Patient's average saturation was 92.9% during REM and 94.3% during NREM. The patient's lowest saturation was 87.0% during REM and 88.0% during NREM. Saturation was 90% or higher for 98.4% of the total sleep time. Saturation was less than or equal to 88% for 0.1% of the total sleep time or 0.6 minutes. Assessment/Plan: Mild Obstructive Sleep Apnea with an increase in respiratory events during REM sleep. Given the patient's elevated AHI consistent with a diagnosis of obstructive sleep apnea, it is recommended that the patient return to the sleep lab for a PAP titration study as this remains the gold standard for the treatment of QUEENIE and is essential for reducing associated health risks and improving sleep quality. Potential health consequences and medical importance of treatment should be discussed with the patient. This patient had an elevated periodic limb movement index which could be a potential source of sleep disruption. I recommend consistent correction of sleep-disordered breathing and if signs of an elevated periodic limb movement index may be required as clinically indicated. This patient should maintain good sleep hygiene techniques, maintain a consistent sleep/wake schedule with adequate hours of sleep, and avoid hazardous activities when sleepy. The patient should be cautioned about factors that may potentially exacerbate snoring and sleep-related problems, such as ACCESS SERVICES ASSISTANT depressants, especially at bedtime. This document was electronically signed by: Lefty Zapien M.D. on 11/13/2024 at 2:45 PM. us Chelita Freeman NP SLEEP CENTER ORDERABLES Final Result [facility] [address] [place] [address], * CT BONE DENSITY AXIAL (10/01/2024 4:58 PM CDT) Anatomical Region Laterality Modality Bone Computed Tomogra phy 10/02/2024 3:08 AM CDT Impressions 10/02/2024 3:09 AM CDT Impression: Low bone mass (osteopenia). Referred By: TONYA CHOW V Interpreted By: Omer Pfeiffer DO, 10/02/2024 3:08 AM Narrative 10/02/2024 3:09 AM CDT [address] [place] [address] Examination: CT BONE DENSITY Clinical history: Postmenopausal. Osteoporosis screening. Technique: Axial CT images of the spine for performance of CT bone densitometry. A dose lowering technique was used for this procedure, which may include, but is not limited to, dose reduction technique, automated exposure control, the use of degenerative reconstruction, ALARA/image gently techniques. COMPARISON: None. Assessment: The BMD measured at the L2-L4 levels is 105.5 mgCA-SAUNDERS/ml with a T-score of -1.9 and a Z-Score of 0.5. Based upon the above measurements, the patient has low bone mass. FRAX not reported/supplied. Based on these results, a followup exam is recommended in 2 years or sooner if clinically indicated. Procedure Note Omer Pfeiffer DO - 10/02/[address] [place] [address] Examination: CT BONE DENSITY Clinical history: Postmenopausal. Osteoporosis screening. Technique: Axial CT images of the spine for performance of CT bonedensitometry. A dose lowering technique was used for this procedure, which may include,but is not limited to, dose reduction technique, automated exposurecontrol, the use of degenerative reconstruction, ALARA/image gentlytechniques. COMPARISON: None. Assessment: The BMD measured at the L2-L4 levels is 105.5 mgCA-SAUNDERS/ml with a T-score of-1.9 and a Z-Score of 0.5. Based upon the above measurements, the patient has low bone mass. FRAX not reported/supplied. Based on these results, a followup exam is recommended in 2 years orsooner if clinically indicated. Impression: Low bone mass (osteopenia). Referred By: TONYA CHOW V Interpreted By: Omer Pefiffer DO, 10/02/2024 3:08 AM OLGA Patrick-BC CT Final R esult * (ABNORMAL) VITAMIN B12 / FOLATE (09/26/2024 10:00 AM CDT) VITAMIN B12 S/P/B 992 254 - 1,320 PG/ML 09/26/2024 2:08 PM CDT [facility] FOLATE 17.9(H) 3.1 - 17.5 NG/ML 09/26/2024 2:08 PM CDT [facility] 09/26/2024 10:0 0 AM CDT Tonya Chow V CONTRACT ASSOCIATE MANAGER-BC LABORATORY Final R esult [facility] [address] [place] [address], * (ABNORMAL) HEMOGLOBIN, GLYCOSYLATED (09/26/2024 10:00 AM CDT) HGB A1C 5.8(H) <5.7 % 09/26/2024 2:38 PM CDT [facility] Comment: ADA GUIDELINES 2010 5.7 TO 6.4% INCREASED RISK OF DIABETES > OR = 6.5% CONSISTENT WITH DIABETES ESTIMATED AVG GLUCOSE 120 mg/dL 09/26/2024 2:38 PM CDT [facility] 09/26/2024 10:0 0 AM CDT Tonya Chow V CONTRACT ASSOCIATE MANAGER- LABORATORY Final R esult [facility] [address] [place] [address], * (ABNORMAL) LIPID PANEL (09/26/2024 10:00 AM CDT) CHOLESTEROL 217(H) <200 MG/DL 09/26/2024 2:08 PM CDT [facility] TRIGLYCERIDES 71 <150 MG/DL 09/26/2024 2:08 PM CDT [facility] HDL 92 >40.0 MG/DL 09/26/2024 2:08 PM CDT [facility] LDL (CALCULATED) 111(H) <100 MG/DL 09/26/2024 2:08 PM CDT [facility] Comment:CALCULATED USING THE FRIEDEWALD EQUATION NON HDL CHOLESTEROL 125 <130 MG/DL 09/26/2024 2:08 PM CDT [facility] CHOL/HDL RATIO 2.4 0.0 - 4.5 09/26/2024 2:08 PM CDT [facility] VLDL CALCULATION 14 5 - 55 MG/DL 09/26/2024 2:08 PM CDT [facility] LIPID INTERPRETATION 09/26/2024 2:08 PM CDT [facility] Comment: NIH CONCENSUS REPORT RECOMMENDATIONS: ADULT CHILD LOW RISK: CHOLESTEROL <200 <170 TRIGLYCERIDE <150 --- HDL >=60 --- LDL <100 <110 BORDERLINE: CHOLESTEROL 200-239 170-199 TRIGLYCERIDE 150-199 --- HDL 40-59 --- LDL 100-159 110-129 HIGH RISK: CHOLESTEROL >=240 >=200 TRIGLYCERIDE >=200 --- HDL <40 --- LDL >=160 >=130 09/26/2024 10:0 0 AM CDT Tonya Chow V, CONTRACT ASSOCIATE MANAGER- LABORATORY Final R esult [facility] [address] [place] [address], [place] [phone] * CBC W/DIFF AUTOMATED (09/26/2024 10:00 AM CDT) WBC 4.86 4.50 - 11.00 x10'3/uL 09/26/2024 10:15 AM CDT [facility] RBC 4.35 4.00 - 5.20 x10'6/uL 09/26/2024 10:15 AM CDT [facility] HGB 13.6 12.0 - 16.0 G/DL 09/26/2024 10:15 AM CDT [facility] HCT 40.0 38.0 - 48.0 % 09/26/2024 10:15 AM CDT [facility] MCV 92.0 80.0 - 100.0 FL 09/26/2024 10:15 AM CDT [facility] MCH 31.3 26.0 - 34.0 PG 09/26/2024 10:15 AM CDT [facility] MCHC 34.0 31.0 - 37.0 G/DL 09/26/2024 10:15 AM CDT [facility] RDW 13.2 11.6 - 14.8 % 09/26/2024 10:15 AM CDT [facility] PLT 296 130 - 400 x10'3/uL 09/26/2024 10:15 AM CDT [facility] MPV 9.7 7.0 - 12.0 FL 09/26/2024 10:15 AM CDT [facility] CBC COMMENT AUTOMATED RBC MORPHOLOGY AND PLATELET EVALUATION NORMAL 09/26/2024 10:15 AM CDT [facility] NEUTROPHILS % 57.3 40.0 - 74.0 % 09/26/2024 10:15 AM CDT [facility] LYMPHOCYTES % 28.8 14.0 - 46.0 % 09/26/2024 10:15 AM CDT [facility] MONOCYTES % 8.0 4.0 - 13.0 % 09/26/2024 10:15 AM CDT [facility] EOSINOPHILS 4.5 0.0 - 7.0 % 09/26/2024 10:15 AM CDT [facility] BASOPHILS 1.2 0.0 - 3.0 % 09/26/2024 10:15 AM CDT [facility] IMMATURE GRANS % 0.2 0.0 - 0.43 % 09/26/2024 10:15 AM CDT [facility] NRBC % 0.0 % 09/26/2024 10:15 AM CDT [facility] ABS. NEUTROPHILS TOTAL 2.78 1.69 - 7.81 x10'3/uL 09/26/2024 10:15 AM CDT [facility] ABS. LYMPHOCYTES 1.40 0.21 - 5.42 x10'3/uL 09/26/2024 10:15 AM CDT [facility] ABS. MONOCYTES 0.39 0.04 - 1.37 x10'3/uL 09/26/2024 10:15 AM CDT [facility] ABS. EOSINOPHILS 0.22 0.00 - 0.68 x10'3/uL 09/26/2024 10:15 AM CDT [facility] ABS. BASOPHILS 0.06 0.00 - 0.08 x10'3/uL 09/26/2024 10:15 AM CDT [facility] ABS. IMMATURE GRANULOCYTES 0.01 0.00 - 0.06 x10'3/uL 09/26/2024 10:15 AM CDT [facility] ABS. NUCLEATED RBC'S 0.00 0.00 - 0.01 x10'3/uL 09/26/2024 10:15 AM CDT [facility] 09/26/2024 10:0 0 AM CDT Tonya Chow V [facility] LABORAT[facility] Final R esult Performing Organization Address City/[facility]/ZIP Co de Phone Number [facility] [address] [address], [place] * (ABNORMAL) THYROID STIM HORMONE TSH (09/26/2024 10:00 AM CDT) TSH 3.950(H) 0.358 - 3.74 uIU/ML 09/26/2024 2:08 PM CDT [facility] Comment: HIGH DOSES OF BIOTIN MAY INTERFERE WITH THIS TEST RESULT. CORRELATION TO CLINICAL HISTORY AND PRESENTATION RECOMMENDED. 09/26/2024 10:0 0 AM CDT [facility] Final R esult [facility] [address] [place] [address], [place] [phone] * VITAMIN D, 25 OH (09/26/2024 10:00 AM CDT) VITAMIN D 25 HYDROXY S/P/B 80 30 - 100 NG/ML 09/26/2024 1:52 PM CDT [facility] Comment: INTERPRETATION DEFICIENT <20 INSUFFICIENT 20-29 SUFFICIENT 30-100 09/26/2024 10:0 0 AM CDT Tonya Chow V [facility] Final R esult Performing Organization Address City/[facility]/ZIP Co de Phone Number [facility] [address] [place] [address], [place] [phone] * URINE BACTERIA CULTURE (09/25/2024 3:51 PM CDT) Pathologist [facility] SPEC DESCRIPTION URINE CLEAN CATCH 09/25/2024 4:13 PM CDT [facility] SPECIAL REQUESTS NO SPECIAL REQUEST 09/25/2024 4:13 PM CDT [facility] CULTURE RESULT NO GROWTH 2 DAYS 09/27/2024 7:10 AM CDT [facility] URINE SPECIMEN OBTAINED BY CLEAN CATCH PROCEDURE / Unknown 09/25/2024 3:51 PM CDT 09/25/2024 4:16 PM CDT Tonya Chow V [facility] MICROBIOLOGY - GENERAL ORDERABLES Final Result Performing Organization Address [facility]/ZIP Co de Phone Number [facility] [address] [place] [address], [place] [phone] [facility] [address] [place] [address], [place] * (ABNORMAL) URINALYSIS AUTO DIP (09/25/2024) COLOR (U) YELLOW YELLOW [facility] (201), [place] TRANSPARENCY CLEAR CLEAR [facility] (201), [place] GLUCOSE (U) NEGATIVE NEGATIVE MG/DL [facility] (201), [place] BILIRUBIN (U) NEGATIVE NEGATIVE [facility] (201), [place] KETONES MG/DL (U) NEGATIVE NEGATIVE MG/DL [facility] (201), [place] SPECIFIC GRAVITY (U) 1.025 1.001 - 1.035 [facility] (201), [place] BLOOD (U) NEGATIVE NEGATIVE [facility] ([facility]), [place] U PH 6.0 5.0 - 9.0 [facility] ([facility]), [place] PROTEIN (U) NEGATIVE NEGATIVE mg/dL [facility] (201), [place] UROBILINOGEN 0.2 0.2 - 1.0 EU/dL = mg/dL [facility] (201), [place] NITRITES NEGATIVE NEGATIVE MG/DL [facility] (201), [place] LEUKOCYTES (U) TRACE(A) NEGATIVE - [facility] [place] URINE SPECIMEN OBTAINED BY CLEAN CATCH PROCEDURE / Unknown 09/25/2024 us Tonya Chow V, CONTRACT ASSOCIATE MANAGER- URINE ORDERABLES Final Result [facility] (201), [place] [address] [place] [id number], * (ABNORMAL) BASIC METABOLIC PANEL (09/05/2024 10:15 AM CDT) GLUCOSE 95 70 - 99 MG/DL 09/05/2024 10:27 AM CDT [facility] BUN 10 7 - 18 MG/DL 09/05/2024 10:27 AM CDT [facility] CREATININE S/P/B 0.81 0.50 - 1.20 MG/DL 09/05/2024 10:27 AM CDT [facility] SODIUM S/P/B 139 136 - 145 MMOL/L 09/05/2024 10:27 AM CDT [facility] POTASSIUM S/P/B 4.1 3.5 - 5.1 MMOL/L 09/05/2024 10:27 AM CDT [facility] CHLORIDE S/P/B 104 100 - 108 MMOL/L 09/05/2024 10:27 AM CDT [facility] CO2 32.3(H) 21.0 - 32.0 MMOL/L 09/05/2024 10:27 AM CDT [facility] CALCIUM S/P/B 8.8 8.5 - 10.1 MG/DL 09/05/2024 10:27 AM CDT [facility] ANION GAP 2.7(L) 5.0 - 15.0 MMOL/L 09/05/2024 10:27 AM CDT [facility] BUN CREATININE RATIO 12.3 6 - 26 09/05/2024 10:27 AM CDT [facility] GFR ESTIMATE 82(L) >90 ML/MIN/1.7 3 M2 09/05/2024 10:27 AM CDT [facility] Comment: NOTE: eGFR is not calculated for patients <18 years of age. This is an estimated GFR calculation using the new CKD EPI creatinine equation without race and so does not require a correction factor for race. This estimated GFR should not be used for calculating drug doses. 09/05/2024 10:1 5 AM CDT Braden Jaimes MD LABORATORY Final Res ult [address] [address], [place] * MAMMOGRAM GENERIC (SCAN ORDER) (05/07/2024) Anatomical Region Laterality Modality Other 05/07/2024 [facility] Scanned SCANNING Final Resu lt * HEPATITIS C ANTIBODY (06/09/2022 9:45 AM CDT) HEPATITIS C AB NON-REACTI VE NON-REACTI VE 06/09/2022 7:33 PM CDT [facility] 06/09/2022 9:45 AM CDT FRANDY PatrickP-BC LABORATORY Final R esult [facility] [address] [place] [address], * COLONOSCOPY (07/27/2011 12:00 AM CDT) 07/27/2011 Documents Scanned SCANNING Final Result Performing Organization Address City/[facility]/ZIP Co de Phone Number [facility] from Last 3 Months or Most Recently Relevant to Health Maintenance Additional Health Concerns Infection Onset Date Last 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
--- OUTSIDE RECORDS SUMMARY | 2024-11-26 12:14 | XMS_ITS ---
Author Organization [facility] Address [address] [place] [address] Phone Care Team Providers Care Guest Service Manager Name Role Phone Unavailable Primary Care Provider Unavailabl e Active Problems Patient Care Coordination No te Formatting of this note migh t be different from the original. Primary Care: Sanford Jorge MD Referring Provider: Sanford Jorge MD [address] [place] [phone] Other: Dr. Xin Scott MD Problem Noted [...] Breast Cancer Survivorship Care Plan Provided by [facility] on 01/21/19 General Information Patient Name: Colleen Sheth Patient : 1960 Care Team Medical Oncologist: Samir Darby Syed M, MD Surgeon: Xin Scott [phone] Primary Care Physician: Dr. Sanford Jorge Nurse [...] IV Estrogen Receptor: Positive Progesterone Receptor: Positive Coa7Shu: Positive Treatment Summary Surgery Left lumpectomy and [...] Functioning Resources Provided to Patient Referrals Provided: [facility] Follow-up and Survivorship Care Follow Up [...] for a mammogram. Medical Oncologist, Surgeon, and OB/Shoe Stock Associate Pelvic examination Continue to visit a vice chair regularly OB/Shoe Stock Associate Bone Density Baseline prior to Anastrozole, Letrozole, [...] for repeat echocardiogram in February [address] [facility] organizations Cancer Support Community of [facility] cancer community office which include support groups (including a survivorship group), mentoring, exercise and yoga classes among other ways to get involved and connect with fellow survivors as well as resources for families and caregivers. Website: http://www.cancersupportstl.org/ [facility] at the [facility] A physical activity and wellness program designed for cancer survivors to help achieve well-being. Contact your local [facility] to get started. The program is free to join and lasts for 12 weeks. Visit the website to see a list of participating locations. Website: https://www.[facility].org/program/livestrong Cancer Information Center at [facility]???s Omer Rehman [facility] Call or drop by to speak with a social work case manager or nurse navigator for questions about financial/food/housing assistance, counseling services, resources for wigs, band aid machine operator referral and general questions about diagnosis, treatment and survivorship. There is also a survivorship monthly support group that meets at [employer]. Call for more information. Website for special events/classes: https://www.[facility]/practice/reva-cancer-center/cance g-oblkwvnt-tww-special-events/ National nonprofit organizations [place]/National Cancer Information Center [facility] provides cancer information and support to patients, families, and caregivers. It also supportsresearch, community, education, and advocacy and public policy issues Phone: 7-489-MKA-0399 ( ) Website: www.cancer.org CancerCare Provides free, professional support services to anyone affected by cancer. CancerCare programs include counseling, education, financial assistance and practical help by trained oncology social workers and are free of charge. Phone: 1-646-450-HOPE ( ) Website: www.cancercare.org Cancer Hope Network Cancer Hope Network matches patients and families with trained volunteers who have recovered from asimilar cancer experience. Phone: 7-484-TYKRQOO ( ) Website: www.cancerhopenetwork.org Cancer Support Community Cancer support community is a national organization that provides support groups, stress reduction and cancer education workshops, nutrition guidance, exercise sessions and social events. Phone: 0-584-648-Neurovance ( ) Website: www.cancersupportcommunity.org National Coalition for Cancer Survivorship NCCS provides information and resources on cancer support, advocacy, and tvuauyt-pc-splv issues to cancer survivors and loved ones. Phone: 7-275-PJQQ-YES ( ) Website: www.canceradvocacy.org Patient Advocate Foundation [facility] provides education, legal counseling, and referrals [...]
--- OUTSIDE RECORDS SUMMARY | 2024-11-26 12:14 | XMS_ITS | Clinical Summary ---
Author Organization [facility] Address [address] [place] [address] Phone Care Team Providers Care Load Dispatcher Name Role Phone Unavailable Primary Care Provider [...] 4 8 Active fluticasone (FLONASE) 50 mcg/spray [place], Suspension by See Admin Instructions route 1 [...] unit Capsule Active naloxone (NARCAN) 4 mg/spray [place], Non-Aerosol Administer 1 spray (4 mg) in [...] (CMS/HCC),Neurop athy,Metastatic cancer to axillary lymph nodes Take 1 Capsule (400 mg) by mouth [...] Take by mouth. Active VIT B COMP NO.1-YZZRW-L-BIO TIN ORAL Take by mouth. Activ e [...] mouth daily. 90 Tablet 3 3 Active losartan (COZAAR) 25 mg tablet [...] FOR ANXIETY/NAUSEA/V OMITING 90 Tablet 4 Active venlafaxine (EFFEXOR) 37.5 mg tablet Take 1 Tablet (37.5 mg) by mouth 2 times daily. 180 Tablet 4 5 Active Active Problems Patient Care Coordination No te Formatting of this note migh t be different from the original. Primary Care: Sanford Jorge MD Referring Provider: Sanford Jorge MD [address] [place] [address] [place] [address] Other: Dr. Xin Scott MD Problem Noted [...] NEGATIVE genetic testing. 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 Gender Identity Not on file Sexual Orientation Not on file Last Filed Vital Signs Vital Sign Reading Time Taken Comments Blood Pressure 149/85 06/02/2024 10:01 AM CDT Pulse 73 06/02/2024 9:59 AM CDT Temperature 36.3 C (97.4 F) 06/02/2024 9:59 AM CDT Respiratory Rate 16 06/02/2024 9:59 AM CDT Oxygen Saturation 98% 06/02/2024 9:59 AM CDT Inhaled Oxygen Concentration - - Weight 84 kg (185 lb 3.2 oz) 06/02/2024 9:59 AM CDT Height 172.7 cm (5' 8) 06/09/2021 1:18 PM CDT Body Mass Index 28.16 06/09/2021 1:18 PM CDT Plan of Treatment Upcoming Encounters Date Type Department Care Team (Late st Contact Info) Description 12/04/2024 10:15 AM CDT Office Visit [facility] Oncology and Hematology - Art [address] [place] [address] Samir Sahu MD [address] [place] [address] Health Maintenance Due Date Last Done Comments Pre-Diabetes and Diabetes Screening 1960 Traditional Medicare (ACO) A nnual Wellness Visit 1980 ZOSTER VACCINE (1 of 2) 1980 FIT-DNA Q 3 years 2006 Flex Sig/CT Colonography Q 5 years 2006 FIT/FOBT Q 1 year 04/02/2019 04/02/2018 INFLUENZA VACCINE (#1) 2024 4, 12/16/2020, 12/24/2017 BREAST CANCER SCREENING 05/07/2025 05/08/19 25, 05/07/2024, 04/18/2024, Additional history exists COLORECTAL SCREENING 06/29/2031 06/28/2021, 07/27/19 12 Colorectal Cancer Screening 06/29/2031 DTAP/TDAP/TD VACCINES (4 - T d or Tdap) 05/03/2033 05/04/2023, 09/21/2014, 08/24/2006, Additional history exists RSV VACCINE (60+ or ) (1 - 1-dose 75+ series) 2036 Medical Devices Implanted Type Area Dresser Tender Device Identifier Shelf Expiration Date Model / Serial / Lot Hemostatic Surgicel 2x14in 1950 - [id number] Implanted:Qty : 1 on 02/08/2018 by Xin Scott MD at [facility] Hemostatic Left: Axilla [employer] [id number] 10/26/20211950 / / [id number] Hemostatic Surgicel 2x14in 1949 - [id number] Implanted:Qty : 1 on 02/25/2018 by Xin Scott MD at [facility] Hemostatic Left: Breast [employer] 06/25/20221950 / / [id number] Explanted Type Area Dresser Tender Device Identifier Shelf Expiration Date Model / Serial / Lot Port Pwrprt Clr Du 8fr Mri [id number] - [id number] Implanted:Qty : 1 on 03/27/2018 by Xin Scott MD at [facility] Explanted:Qty : 1 on 02/09/2020 by Xin Scott MD at [facility] Port Right: Chest CR [employer] [id number] 05/27/2019 [id number] / / [id number] Procedures Procedure Name Priority Date/Time Associated Diagnosis Comments MAMMO BILAT DIAGNOSTIC Routine 11:16 AM CDT OCCULT BLOOD IMMUNOASSAY, COLORECTAL SCREEN Routine 04/02/2018 [...] Most Recently Relevant to Health Maintenance Insurance MEDICARE PART A AND B RX [employer] MEDICARE PART A AND B BC OUT OF STATE Advance Directives For more information, please contact: [phone] * Full Code (Latest Code Status on File) Date Activated Date Inactivated Comments 03/27/2018 6:52 AM 03/27/2018 11:34 AM * Full Code Date Activated Date Inactivated Comments 02/08/2018 2:30 PM 02/08/2018 8:51 PM
[2024-11-26 18:43] LABS: Alanine Aminotransferase 15 U/L (6-35); Albumin Level 4.3 g/dL (3.5-5.1); Alkaline Phosphatase 77 U/L (38-126); Anion Gap 6 mmol/L (4-12); Aspartate Amino Transferase 46 U/L (14-36); Bilirubin,Total 0.3 mg/dL (0.2-1.3); Blood Urea Nitrogen 13 mg/dL (7-17); Calcium 9.1 mg/dL (8.4-10.2); Carbon Dioxide 29 mmol/L (22-30); Chloride 104 mmol/L (98-107); Estimated Glomerular Filt Rate > 60; Glucose 95 mg/dL (65-110); Potassium 3.8 mmol/L (3.4-5.0); Sodium 139 mmol/L (137-145); Total Protein 7.6 g/dL (6.3-8.2)
== END 2024-11-26 11:41 | disposition home or self-care (01) ==
LOC: ANHLAB 11:41
PROVIDERS: Visit Provider Internal Medicine Hematology & Oncology
DX: C50.912 Malignant neoplasm of unspecified site of left female breast (principal)
CPT/HCPCS: 36415; 80053; 85025; 86300